=== PATIENT | female | born 1960 | race Caucasian/White ===

== ENCOUNTER 2016-11-18 08:19 | Emergency (ER) | payer BC ==
--- NOTE | 2016-11-18 11:34 | ED ---
Course/Dx - Diagnoses Provider Diagnoses: Bartholin cyst Procedures - Incision and Drainage Site: labia Anesthesia: Local Instrument(s): Scalpel Packing: Gauze
[2016-11-18 14:19] VITALS: BP 132/90
--- NOTE | 2016-11-30 21:22 | ED ---
Good Bowling Alok, scribed for Robson Espitia MD on 11/18/16 at 1134 . GI/ HPI - HPI Summary HPI Summary: 56 y/o female presents to ED and c/o of vaginal pain accompany vaginal lump noticed earlier this morning. She denies any vaginal discharge, fever, vaginal bleeding, abd pain, Hx of DM, dyspnea, and has pacemaker in place. She is not on and medications. She reports NKDA and is postmenopausal. - History of Current Complaint Chief Complaint: EDUrogenitalProblems Time Seen by Provider: 11/18/16 08:42 Stated Complaint: LUMP ON VAG Hx Obtained From: Patient Onset/Duration: Started Hours Ago, Atraumatic, Still Present Timing: Constant, Lasting Hours Severity: Moderate Current Severity: Moderate Pain Intensity: 10 Location of Pain: Groin - "Vaginal" Pain Characteristics: Pressure Associated Signs and Symptoms: Negative: Fever, Abdominal Pain, Other: - Dyspnea Additional Signs & Symptoms: Positive: Other: - Postmenopausal. Negative: Vaginal Bleeding, Vaginal Discharge Aggravating Factor(s): Nothing Alleviating Factor(s): Nothing - Allergy/Home Medications Allergies/Adverse Reactions: Allergies Allergy/AdvReac Type Severity Reaction Status Date / Time PACEMAKER Allergy MRI Uncoded 11/18/16 08:21 CONTRAINDICATED PMH/Surg Hx/FS Hx/Imm Hx Endocrine/Hematology History: Denies: Hx Anticoagulant Therapy, Hx Diabetes, Hx Thyroid Disease Cardiovascular History: Reports: Hx Pacemaker/ICD Denies: Hx Hypertension Respiratory History: Denies: Hx Asthma, Hx Chronic Obstructive Pulmonary Disease (COPD) History: Denies: Hx Renal Disease Neurological History: Denies: Hx Dementia, Hx Seizures Psychiatric History: Denies: Hx Substance Abuse - Cancer History Hx Chemotherapy: No Hx Radiation Therapy: No Infectious Disease History: No Infectious Disease History: Denies: Hx Hepatitis, Hx Human Immunodeficiency Virus (HIV), Traveled Outside the US in Last 30 Days - Family History Known Family History: Negative: Other - Breast Cancer - Social History Alcohol Use: None Substance Use Type: Reports: None Hx Tobacco Use: Yes Smoking Status (MU): Light Every Day Tobacco Smoker Review of Systems Negative: Fever, Chills Negative: Erythema Negative: Sore Throat Negative: Chest Pain Negative: Shortness Of Breath, Cough Negative: Abdominal Pain, Vomiting, Nausea Genitourinary: Other - Negative: Vaginal Bleeding, Vaginal Discharge Negative: dysuria, hematuria Negative: Myalgia, Edema Positive: Other - Vaginal lump. Negative: Rash Neurological: Other - Negative: Dizziness All Other Systems Reviewed And Are Negative: Yes Physical Exam - Summary Physical Exam Summary: Constitutional: Well-developed, Well-nourished, Alert. (-) Distressed Skin: Warm, Dry HENT: Normocephalic; Atraumatic Eyes: Conjunctiva normal Neck: Musculoskeletal ROM normal neck. (-) JVD, (-) Stridor, (-) Tracheal deviation Cardio: Rhythm regular, rate normal, Heart sounds normal; Intact distal pulses; The pedal pulses are 2+ and symmetric. Radial pulses are 2+ and symmetric. (-) Murmur Pulmonary/Chest wall: Effort normal. (-) Respiratory distress, (-) Wheezes, (-) Rales Abd: Soft, (-) Tenderness, (-) Distension, (-) Guarding, (-) Rebound Musculoskeletal: (-) Edema Lymph: (-) Cervical adenopathy Neuro: Alert, Oriented x3 Pelvic: Exterior pelvic exam: bartholin cyst indurated at 4 o'clock position on left labia. Triage Information Reviewed: Yes Vital Signs On Initial Exam: Initial Vitals Temp Pulse Resp BP Pulse Ox 98.1 F 64 16 128/87 100 11/18/16 08:21 11/18/16 08:21 11/18/16 08:21 11/18/16 08:21 11/18/16 08:21 Vital Signs Reviewed: Yes Diagnostics - Vital Signs Vital Signs Temp Pulse Resp BP Pulse Ox 11/18/16 08:21 98.1 F 64 16 128/87 100 - Laboratory Lab Statement: Any lab studies that have been ordered have been reviewed, and results considered in the medical decision making process. Re-Evaluation - Re-Evaluation First Eval Re-Evaluation Time: 10:15 Comment: ALEX Perez present as female foreign language professor Second Eval Re-Evaluation Time: 10:55 Comment: in room to provide bedside assistance for procedure GIGU Course/Dx - Diagnoses Provider Diagnoses: Bartholin cyst Discharge - Discharge Plan Condition: Stable Disposition: HOME Patient Education Materials: Bartholin Cyst (ED) Referrals: Brenda Gerber MD [Medical Doctor] - 5 Days Additional Instructions: Follow up with OBGYN for packing removal Return to the emergency department for changing or worsening symptoms The documentation as recorded by the Good snow Alok accurately reflects the service I personally performed and the decisions made by me, Robson Espitia MD.
== END 2016-11-18 12:15 | disposition home or self-care (01) ==
LOC: ED 08:19
DX: N75.0 Cyst of Bartholin's gland (principal)
CPT/HCPCS: 56420; 99281

== ENCOUNTER 2016-11-20 12:36 | Emergency (ER) | payer BC ==
[2016-11-20 12:58] VITALS: BP 111/84
--- NOTE | 2016-11-20 14:00 | UC ---
Skin Complaint HPI - HPI Summary HPI Summary: The patient comes in today for: 1. Left labial cyst surgical follow-up Onset: 3 days ago. Palliative/provocative: Touching makes it worse. Sitz baths help. Quality: Soreness Region: Left perineal area. Severity: 10/10, but she looks more like 6/10 Time: Constant. Associated symptoms: Event: The patient had noticed soreness initially. She went to the ER at [facility] and it was I and D'ed. However the patient states that it is still sore. She does not see the "string." She is on no medications. Fevers: None. Drainage: None. * - History of Current Complaint Chief Complaint: UCGU Time Seen by Provider: 11/20/16 13:55 Stated Complaint: WOUND RECHECK Hx Obtained From: Patient Hx Last Menstrual Period: NA ?: No - Allergy/Home Medications Allergies/Adverse Reactions: Allergies Allergy/AdvReac Type Severity Reaction Status Date / Time PACEMAKER Allergy MRI Uncoded 11/18/16 08:21 CONTRAINDICATED Review of Systems All Other Systems Reviewed And Are Negative: Yes PMH/Surg Hx/FS Hx/Imm Hx Endocrine History Of: Denies: Diabetes, Thyroid Disease, Hyperthyroidism, Hypothyroidism, Dyslipidemia Cardiovascular History Of: Reports: Cardiac Disorders - PACEMAKER, Pacemaker/ ICD - Pacemaker: She had a "fast rhythm" "heartbeat of a marathon runner." Denies: Hypertension, Myocardial Infarction, Congestive Heart Failure, Atrial Fibrillation, Deep Vein Thrombosis, Bleeding Disorders Respiratory History Of: Denies: COPD, Asthma, Bronchitis, Pneumonia, Pulmonary Embolism GI/ History Of: Denies: Gastroesophageal Reflux, Ulcer, Gastrointestinal Bleed, Gall Bladder Disease, Kidney Stones, Diverticulitis, Renal Disease, Urosepsis Neurological History Of: Denies: TIA, CVA, Dementia, Seizures, Migraine Psychological History Of: Denies: Anxiety, Depression, Bipolar Disorder, Schizophrenia, Post Traumatic Stress Disorder Cancer History Of: Denies: Lung Cancer, Colorectal Cancer, Breast Cancer, Prostate Cancer, Cervical Cancer Other History Of: Negative For: HIV, Hepatitis B, Hepatitis C, Anticoagulant Therapy - Surgical History Surgical History: Yes Surgery Procedure, Year, and Place: HYSTERECTOMY. C SECTION X2 - Family History Known Family History: Negative: Cardiac Disease, Hypertension, Diabetes - Social History Occupation: Employed Full-time Alcohol Use: None Substance Use Type: None Smoking Status (MU): Light Every Day Tobacco Smoker Physical Exam Triage Information Reviewed: Yes Appearance: Well-Appearing, No Pain Distress, Other: - Patient has a sour attitude--using cuss words and showing irritation in her present situation. Vital Signs: Initial Vital Signs Temp 97.4 F 11/20/16 12:53 Pulse 60 11/20/16 12:53 Resp 16 11/20/16 12:53 BP 111/84 11/20/16 12:53 Pulse Ox 97 11/20/16 12:53 Vital Signs Reviewed: Yes Eyes: Positive: Conjunctiva Clear. Negative: Discharge ENT: Positive: Hearing grossly normal. Negative: Pharyngeal erythema, Nasal congestion, Nasal drainage, TM bulging, TM dull, TM red, Tonsillar swelling, Tonsillar exudate Dental: Negative: Gross Decay/Caries @, Dental Fracture @ Neck: Positive: Supple, Nontender, No Lymphadenopathy. Negative: Nuchal Rigidity Respiratory: Positive: Lungs clear, No respiratory distress, No accessory muscle use. Negative: Chest non-tender, Crackles, Wheezing Cardiovascular: Positive: RRR, No Murmur Abdomen Description: Positive: Nontender, No Organomegaly, Soft. Negative: Distended, Guarding Musculoskeletal: Positive: Strength Intact, ROM Intact, No Edema Neurological: Positive: Alert, Muscle Tone Normal Psychological: Positive: Age Appropriate Behavior, Other: - She would follow commands, but was acting like she was discusted with every aspect of her life at this time. Skin: Negative: rashes, breakdown UC Physical Exam Vital Signs On Initial Exam: Initial Vitals Temp Pulse Resp BP Pulse Ox 97.4 F 60 16 111/84 97 11/20/16 12:53 11/20/16 12:53 11/20/16 12:53 11/20/16 12:53 11/20/16 12:53 - Genitalia Exam Female Genitourinary: Other - External genitalia: The right vulva was normal. The left revealed no marked edema or erythema or discharge. There was the surgical site seen. There was no discharge. There was no drain in place. There was minimal tenderness to palpation. There were no enlarged lymph nodes. There was induration about 1 cm in size. Course/Dx - Differential Diagnoses - Skin Complaint Differential Diagnoses: Cellulitis - Diagnoses Provider Diagnoses: REsovling Bartholin's gland abscess. Discharge - Discharge Plan Condition: Stable Disposition: HOME Patient Education Materials: Bartholin Cyst (ED), Incision and Drainage (ED), Cellulitis (ED) Additional Instructions: Please finish the antibiotic as directed and see your primary care provider or TONGUER as needed and particularly if you get worse while on this treatment.
== END 2016-11-20 14:28 | disposition home or self-care (01) ==
LOC: UCEAST 12:36
DX: N75.1 Abscess of Bartholin's gland (principal); F17.210 Nicotine dependence, cigarettes, uncomplicated
CPT/HCPCS: 99211; G0463

== ENCOUNTER → 2017-03-17 12:01 | Day surgery (SDC) | payer BC ==
--- NOTE | 2017-03-10 15:55 | HP ---
PREOPERATIVE HISTORY AND PHYSICAL: DATE OF ADMISSION/SURGERY: 03/17/17 This patient is scheduled for same day surgery admission by Dr. Mae on 03/17/17. CHIEF COMPLAINT: Left groin mass. HISTORY OF PRESENT ILLNESS: The patient is a 56-year-old female referred to Dr. Mae by Dr. Su and nurse practitioner, Lizbeth Blanton, for evaluation of a mass in the left groin. The patie nt states it has been present for several months and it seemed to appear suddenly. She denies any p ain, but has noticed increased size. 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 This has not bee n interfering with her activity. There has been no erythema or drainage. She denies any gastrointe stinal or genitourinary complaints. Dr. Mae examined the patient and noted a mass in the left groin approximately 2 to 3 cm in size, soft, nontender, and easily movable. There was no associate d erythema or fluctuance. Dr. Mae referred the patient for an ultrasound of the left groin and this was consistent with a left femoral hernia. Dr. Mae reviewed the findings with the [facility] and has recommended open repair of the left femoral hernia with mesh as a same day surgery proced ure with local anesthesia and intravenous sedation. He described the nature of the surgical procedu re, the rationale for the procedure, the relevant risks and benefits and alternatives, and today I r eviewed the expected postoperative care and recovery. The patient has had a chance to ask questions and stated that she understands the information and is satisfied with the answers given to her ques tions. She will sign surgical consent on the day of surgery. PAST MEDICAL HISTORY: Significant for: 1. Sick sinus syndrome with implanted pacemaker since 2011, followed by Dr. Grover. 2. Smoking. PAST SURGICAL HISTORY: Implantation of pacemaker, 2012; hemorrhoidectomy; hysterectomy; and cesarea n section. MEDICATIONS: 1. Metoprolol ER 25 mg p.o. daily in the morning. 2. Ibuprofen 600 mg 3 times a day p.r.n. ALLERGIES: No known drug allergies. FAMILY HISTORY: No known anesthesia complications, bleeding tendencies, or clotting disorders. SOCIAL HISTORY: She is single. She smokes a pack of cigarettes every 2 weeks and drinks alcohol ev jessica other day. 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 REVIEW OF SYSTEMS: Constitutional: She denies any constitutional symptoms. HEENT: Denies any symp toms. Cardiovascular: She has a history of implanted pacemaker with the last interrogation, [facility] er 2015. While she was here in our office, she complained of palpitations and dizziness. I called Dr. Grover's office and scheduled her for an appointment there when she left our office. She was seen at Dr. Grover's office and is scheduled for Holter monitoring, 03/11/17, and an ec hocardiogram, , 03/13/17. She denied any chest pain, syncopal episodes, or shortness of jo ath. Respiratory: Denies any respiratory symptoms. Gastrointestinal: Denies any gastrointestinal symptoms. Genitourinary: Denies any urinary symptoms. She denies any history of deep vein thrombo sis or pulmonary embolism. She denies any previous anesthesia complications and states that she rec eived a transfusion at the time of her hysterectomy. PHYSICAL EXAMINATION GENERAL SURVEY: The patient is a 56-year-old female, well developed, well nourished, in no acute di stress. VITAL SIGNS: Height 69 inches, weight 131 pounds, body mass index 19.3. Blood pressure 110/70, pul se 82 and regular, respiratory rate 20. She is afebrile. HEENT: Benign. NECK: Supple. No cervical lymphadenopathy. No thyromegaly. BACK: No CVA tenderness. LUNGS: Breath sounds bilaterally clear and equal. HEART: Regular rate and rhythm. No murmurs or rubs appreciated. ABDOMEN: Positive bowel sounds in all quadrants. Soft, nondistended, nontender throughout. No obv ious masses, organomegaly, or evidence of umbilical hernia. Groin exam reveals an easily movable 2 t o 3-cm mass in the left groin that is soft and nontender. No associated erythema or fluctuance. No mass in the right groin. EXTREMITIES: Warm without edema or skin ulceration. PELVIC AND RECTAL: Exams deferred. NEUROLOGIC: Alert and oriented x3. Steady gait. SKIN: Warm, dry, intact. IMPRESSION: Left femoral hernia. PLAN: Same day surgery admission to Dr. Mae's service on 03/17/17, for open repair of left femoral hernia with mesh. We will await cardiac clearance from Dr. Grover following her Ho lter monitoring on 03/11/17 and echocardiogram on 03/13/17. MEMO ROSALES, RECORDS MANAGEMENT COORDINATOR [id number]/[facility] #: [id number]
[~2017-03-17 12:01] MED LIST: Buffered Lidocaine 0.9% SYRIN* 5 ML/SYR SYRINGE INTRADERM ONE; Buffered Lidocaine 0.9% SYRIN* 5 ML/SYR SYRINGE ONE; Bupivacaine 0.25% SDV* 30 ML ONE; Bupivacaine 0.5% W/EPI SDV* 30 ML VIAL ONE; Lidocaine 1% INJ* 10 MG/ML 30 ML SDV ONE; Midazolam* 1 MG/ML 5 ML VIAL (5 MG) ONE; Propofol* 10 MG/ML 20 ML BTL IV PUSH ONE; ceFAZolin 2 GM PREMIX(*) 2 GM/50 ML BAG IVPB ONE; fentaNYL* 50 MCG/ML 2 ML VIAL (100 MCG VIAL) IV PRN; fentaNYL* 50 MCG/ML 2 ML VIAL (100 MCG VIAL) ONE
--- NOTE | 2017-03-17 15:35 | SURGPN ---
Brief Operative Note - Surgery Procedures: OPERATIVE REPORT PRE-OP: Left femoral hernia POST-OP: Same PROCEDURE: Open repair with mesh of left inguinal hernia SURGEON: MD Carmelita ANESTHESIA: General with Local. Dr. Milian ASST: ALEX Ramos IVF: min EBL: min SPECIMEN: nine DRAIN: none WOUND CLASS: One COMPLICATIONS: none TO PACU
[2017-03-17 16:34] VITALS: BP 121/88
--- NOTE | 2017-03-18 12:14 | OP ---
DATE OF OPERATION: 03/17/17 [facility] DATE OF : 56 SURGEON: Naveed Mae MD YARDAGE CALLER: ALEX Mayen ANESTHESIOLOGIST: Eduardo Milian MD ANESTHESIA: Local with general. PRE-OP DIAGNOSIS: Left femoral hernia. POST-OP DIAGNOSIS: Left femoral hernia. OPERATIVE PROCEDURE: Open repair with mesh of the left femoral hernia. ESTIMATED BLOOD LOSS: Minimal. WOUND CLASSIFICATION: I. COMPLICATIONS: None. DRAINS: None. SPECIMENS: None. DESCRIPTION OF PROCEDURE: Written informed consent was obtained, the left groin was marked with indelible ink and preoperative antibiotics were administered. The patient was taken to the operating room and placed in the supine position. Sequential compression devices and a warming blanket were applied. Anesthesia was administered. The left groin and lower abdomen were prepped and draped in the usual sterile fashion. Time-out verification was completed. Next, careful palpation of the left groin just medial to the femoral vessels and above the inguinal crease, there was the palpable 2-cm bulge not reducible. No overlying skin changes. Well below the expected location of an inguinal hernia. 1% lidocaine mixed with 0.25 % Marcaine infiltrated. An oblique incision was made fingerbreadths above the inguinal crease, carried down to the subcutaneous tissue. Here, we identified fatty protuberance which was from the surrounding tissue up to just below the reflection of the external oblique aponeurosis, medial to the great vessels consistent with a femoral hernia. We were able to dissect this up to the neck and this was reduced without difficulty. The femoral canal was approximately 5 to 6 cm in width and we were easily able to pass a Nika clamp into the canal to assure ourselves that we have completely reduced the hernia sac. Next, a small piece of polypropylene mesh was then rolled into a cylinder type of plug, which was approximately 6 to 7 in diameter and about 3.5 cm in length. This was held in a cylinder with 2 separate 0 Polysorb sutures. We were next able to take the mesh and insert it up into the femoral canal to plug the hernia defect. It fit nicely and occlusively. This was sutured to in two places to the external oblique aponeurosis at its reflection with 0 Polysorb suture. This was flushed with the subcutaneous tissue, did not protrude. Hemostasis was assured. The wound was then closed in layers of 3-0 and 4-0 Polysorb sutures. Steri-Strips and sterile dressings were applied. The patient tolerated the procedure well, was taken to the recovery room in stable condition. [id number]/[facility] #: [id number] KEVIN
== END | disposition home or self-care (01) ==
LOC: OR 12:01
PROVIDERS: ATTEND Surgery
DX: K41.90 Unilateral femoral hernia, without obstruction or gangrene, not specified as recurrent (principal); I49.5 Sick sinus syndrome; Z95.0 Presence of cardiac pacemaker; F17.210 Nicotine dependence, cigarettes, uncomplicated
CPT/HCPCS: C1781; J0690; J2001; J2250; J2704; J3010

== ENCOUNTER 2017-05-30 08:07 | Emergency (ER) | payer BC ==
[2017-05-30 08:13] VITALS: BP 145/99
--- NOTE | 2017-05-30 09:06 | ED ---
Throat Pain/Nasal Congestion - HPI Summary HPI Summary: The pt is a 56 y/o F presenting to the ED c/o dental pain that began last night and worsened upon waking this morning. The pain is constant. The pt rates the pain 3/10. The pain is aggravated and alleviated by nothing. 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 Denies fever, discharge, swelling. Denies any other complaints. Has chronic dental issues. Made an appointment with dentist later in week. Does not want the tooth to become infected. SHx: smoking, weekly alcohol use. - History of Current Complaint Chief Complaint: EDDentalPain Time Seen by Provider: 05/30/17 08:47 Hx Obtained From: Patient Onset/Duration: Sudden Onset, Still Present, Worse Since Severity: Moderate Cough: None - Allergies/Home Medications Allergies/Adverse Reactions: Allergies Allergy/AdvReac Type Severity Reaction Status Date / Time PACEMAKER Allergy MRI Uncoded 03/10/17 12:08 CONTRAINDICATED PMH/Surg Hx/FS Hx/Imm Hx Endocrine/Hematology History: Denies: Hx Anticoagulant Therapy, Hx Diabetes, Hx Thyroid Disease Cardiovascular History: Reports: Hx Pacemaker/ICD - Pacemaker: She had a "fast rhythm" "heartbeat of a marathon runner.", Other Cardiovascular Problems/ Disorders - hyprlipidemia Denies: Hx Congestive Heart Failure, Hx Deep Vein Thrombosis, Hx Hypertension , Hx Myocardial Infarction Respiratory History: Denies: Hx Asthma, Hx Chronic Obstructive Pulmonary Disease (COPD), Hx Lung Cancer, Hx Pneumonia, Hx Pulmonary Embolism GI History: Reports: Other GI Disorders - hemorrhoids Denies: Hx Gall Bladder Disease, Hx Gastrointestinal Bleed, Hx Ulcer, Hx Urosepsis History: Denies: Hx Kidney Stones, Hx Renal Disease Musculoskeletal History: Reports: Hx Tendonitis - hands, Other Musculoskeletal History - lumbago Sensory History: Reports: Hx Contacts or Glasses - wears glasses Denies: Hx Hearing Aid Opthamlomology History: Reports: Hx Contacts or Glasses - wears glasses Neurological History: Denies: Hx Dementia, Hx Migraine, Hx Seizures, Hx Transient Ischemic Attacks (TIA) Psychiatric History: Denies: Hx Anxiety, Hx Depression, Hx Schizophrenia, Hx Bipolar Disorder, Hx Substance Abuse - Cancer History Hx Chemotherapy: No Hx Radiation Therapy: No - Surgical History Surgery Procedure, Year, and Place: HYSTERECTOMY over 30 yrs ago. C SECTION X2 1972, 72 Hx Anesthesia Reactions: No - Immunization History Immunizations Up to Date: Yes Infectious Disease History: No Infectious Disease History: Denies: Hx Clostridium Difficile, Hx Hepatitis, Hx Human Immunodeficiency Virus (HIV), Traveled Outside the US in Last 30 Days - Family History Known Family History: Negative: Cardiac Disease, Hypertension, Diabetes - Social History Alcohol Use: Weekly Alcohol Amount: on weekends 2-3 drinks Substance Use Type: Reports: Marijuana Substance Use Comment - Amount & Last Used: smokes marijuana every day, 2 joints a day Smoking Status (MU): Light Every Day Tobacco Smoker Amount Used/How Often: 1-2 cigg a day, pt has smoked since she was 14 on/off Review of Systems Constitutional: Negative Eyes: Negative Positive: Dental Pain Cardiovascular: Negative Respiratory: Negative Neurological: Negative All Other Systems Reviewed And Are Negative: Yes Physical Exam Triage Information Reviewed: Yes Vital Signs On Initial Exam: Initial Vitals Temp Pulse Resp BP Pulse Ox 97.0 F 84 20 145/99 100 05/30/17 08:10 05/30/17 08:10 05/30/17 08:10 05/30/17 08:05/30/17 08:10 Vital Signs Reviewed: Yes Appearance: Positive: Well-Appearing, Well-Nourished, Pain Distress - mild, patient pacing in room and appears frustrated due to discomfort Skin: Positive: Warm, Skin Color Reflects Adequate Perfusion, Dry. Negative: Cold, Tender, Pale, Erythema @ Head/Face: Positive: Normal Head/Face Inspection Eyes: Positive: Conjunctiva Clear ENT: Positive: Hearing grossly normal, Pharynx normal, TMs normal Dental: Positive: Gross Decay/Caries @, Dental Fracture @ - tenderness at right lower canine, Other - no sign of abscess or erythema, edema. Negative: Percussion Tenderness @, Abscess @, Cellulitis @, Cervical Lymphadenopathy Neck: Positive: Supple, Nontender, No Lymphadenopathy Respiratory/Lung Sounds: Positive: Clear to Auscultation, Breath Sounds Present. Negative: Rales, Rhonchi, Wheezes Cardiovascular: Positive: Normal, RRR, Pulses are Symmetrical in both Upper and Lower Extremities. Negative: Murmur, Rub Bowel Sounds: Positive: Present Musculoskeletal: Positive: Normal, Strength/ROM Intact Neurological: Positive: Normal, Sensory/Motor Intact, Alert, Oriented to Person Place, Time Diagnostics - Vital Signs Vital Signs Temp Pulse Resp BP Pulse Ox 09/01/17 08:17 97.0 F 84 20 145/99 100 05/30/17 08:10 97.0 F 84 20 145/99 100 - Laboratory Lab Statement: Any lab studies that have been ordered have been reviewed, and results considered in the medical decision making process. EENT Course/Dx - Course Course Of Treatment: will be given antibiotic to prevent infection as tooth complained of appears to be fractured/ decay and susceptible to infection. amoxicillin and pain management sent to [facility]. vitals and PE normal otherwise. no other complaints at this time. no concern for emergent etiology. follow up with dentist. aware of worsening signs and symptoms. - Differential Diagnoses Differential Diagnoses: Dental Caries, Fractured Tooth, Tonsilitis - Diagnoses Provider Diagnoses: Pain, dental Discharge - Discharge Plan Condition: Stable Disposition: HOME Prescriptions: Amoxicillin PO (*) [Amoxicillin 500 MG CAP*] 500 mg PO Q12H #14 cap traMADol TAB* [Ultram*] 50 mg PO Q12H PRN #8 tab MDD 2 PRN Reason: Pain Patient Education Materials: Toothache (ED) Referrals: Richard Begum MD [Primary Care Provider] - Additional Instructions: Take prescribed medication as directed. Pain medication along with ibuprofen as needed. Follow up and make appointment with dentist. Swish with salt water and keep good oral hygiene. RETURN TO THE EMERGENCY DEPARTMENT FOR CHANGING OR WORSENING SYMPTOMS
== END 2017-05-30 09:17 | disposition home or self-care (01) ==
LOC: ED 08:07
DX: K08.89 Other specified disorders of teeth and supporting structures (principal)
CPT/HCPCS: 99281

== ENCOUNTER 2018-03-07 17:53 | Emergency (ER) | payer BC ==
[2018-03-07] MEDS ORDERED: Cephalexin CAP* 500 MG PO ONE (18:36)
--- NOTE | 2018-03-07 18:36 | ED ---
Lower Extremity - HPI Summary HPI Summary: 57-year-old female presents with right leg wound for the past 2 weeks. She states she cut it on a nail. She states this occurred 2 weeks ago. She states that the laceration seemed to be healing. She states the past couple days she' s had some drainage from the area. She states she is concerned that is infected has not been healing is rapidly. no spreading redness. No fevers. No history of diabetes. Has no medical conditions. No other injury. No history of MRSA. - History of Current Complaint Chief Complaint: EDExtremityLower Stated Complaint: RT LEG POSSIBLE INFECTION Time Seen by Provider: 03/07/18 18:06 Hx Last Menstrual Period: NA Pain Intensity: 0 - Allergies/Home Medications Allergies/Adverse Reactions: Allergies Allergy/AdvReac Type Severity Reaction Status Date / Time PACEMAKER Allergy MRI Uncoded 03/10/17 12:08 CONTRAINDICATED PMH/Surg Hx/FS Hx/Imm Hx Endocrine/Hematology History: Denies: Hx Anticoagulant Therapy, Hx Diabetes, Hx Thyroid Disease Cardiovascular History: Reports: Hx Pacemaker/ICD - Pacemaker: She had a "fast rhythm" "heartbeat of a marathon runner.", Other Cardiovascular Problems/ Disorders - hyprlipidemia Denies: Hx Angina, Hx Congestive Heart Failure, Hx Coronary Artery Disease, Hx Deep Vein Thrombosis, Hx Hypercholesterolemia, Hx Hypertension, Hx Myocardial Infarction, Hx Valvular Heart Disease Respiratory History: Denies: Hx Asthma, Hx Chronic Obstructive Pulmonary Disease (COPD), Hx Lung Cancer, Hx Pneumonia, Hx Pulmonary Embolism GI History: Reports: Other GI Disorders - hemorrhoids Denies: Hx Gall Bladder Disease, Hx Gastrointestinal Bleed, Hx Ulcer, Hx Urosepsis History: Denies: Hx Kidney Stones, Hx Renal Disease Musculoskeletal History: Reports: Hx Tendonitis - hands, Other Musculoskeletal History - lumbago Sensory History: Reports: Hx Contacts or Glasses - wears glasses Denies: Hx Hearing Aid Opthamlomology History: Reports: Hx Contacts or Glasses - wears glasses Neurological History: Denies: Hx Dementia, Hx Migraine, Hx Seizures, Hx Transient Ischemic Attacks (TIA) Psychiatric History: Denies: Hx Anxiety, Hx Depression, Hx Schizophrenia, Hx Bipolar Disorder, Hx Substance Abuse - Cancer History Hx Chemotherapy: No Hx Radiation Therapy: No - Surgical History Surgery Procedure, Year, and Place: HYSTERECTOMY over 30 yrs ago. C SECTION X2 1972, 72 Hx Anesthesia Reactions: No Infectious Disease History: No Infectious Disease History: Denies: Hx Clostridium Difficile, Hx Hepatitis, Hx Human Immunodeficiency Virus (HIV), Traveled Outside the [place] in Last 30 Days - Family History Known Family History: Negative: Cardiac Disease, Hypertension, Diabetes - Social History Alcohol Use: Weekly Alcohol Amount: on weekends 2-3 drinks Substance Use Type: Reports: Marijuana Substance Use Comment - Amount & Last Used: smokes marijuana every day, 2 joints a day Smoking Status (MU): Light Every Day Tobacco Smoker Amount Used/How Often: 1-2 cigg a day, pt has smoked since she was 14 on/off Review of Systems Negative: Fever Negative: Chest Pain Negative: Shortness Of Breath Positive: Rash All Other Systems Reviewed And Are Negative: Yes Physical Exam Triage Information Reviewed: Yes Vital Signs On Initial Exam: Initial Vitals Temp Pulse Resp BP Pulse Ox 98.5 F 66 16 108/71 97 03/07/18 17:57 03/07/18 17:57 03/07/18 17:57 03/07/18 17:57 03/07/18 17:57 Vital Signs Reviewed: Yes Appearance: Positive: Well-Appearing Skin: Positive: Warm, Dry, Other - 3cm by 2cm healing wound with serosangous fluid, no abscess felt, no surrouding erythema Head/Face: Positive: Normal Head/Face Inspection Eyes: Positive: Normal, Conjunctiva Clear ENT: Positive: Pharynx normal Respiratory/Lung Sounds: Positive: Clear to Auscultation, Breath Sounds Present Cardiovascular: Positive: Normal, RRR Musculoskeletal: Positive: Strength/ROM Intact - right lower leg, Other - good pulses Neurological: Positive: Normal Psychiatric: Positive: Normal Diagnostics - Vital Signs Vital Signs Temp Pulse Resp BP Pulse Ox 03/07/18 17:57 98.5 F 66 16 108/71 97 - Laboratory Lab Statement: Any lab studies that have been ordered have been reviewed, and results considered in the medical decision making process. Lower Extremity Course/Dx - Course Course Of Treatment: 57-year-old female presents with right leg wound for the past 2 weeks. She states she cut it on a nail. She states this occurred 2 weeks ago. She states that the laceration seemed to be healing. She states the past couple days she's had some drainage from the area. She states she is concerned that is infected has not been healing is rapidly. no spreading redness. No fevers. No history of diabetes. Has no medical conditions. No other injury. No history of MRSA. On exam has 3 separate 2 cm healing lesion on the right ruiz. No erythema. No abscess felt. There is some skin present that removed and debride wound. Serosanguineous fluid present. Will treat with Neosporin and keflex to prevent infection. area does not appear cellulitis at the moment. patient understand and agrees with plan. - Diagnoses Differential Diagnosis/HQI/PQRI: Positive: Cellulitis, Other - healing wound, dehiscence, abscess Provider Diagnoses: Healing wound Discharge - Sign-Out/Discharge Documenting (check all that apply): Discharge/Admit/Transfer - Discharge Plan Condition: Good Disposition: HOME Prescriptions: Cephalexin CAP* [Keflex CAP*] 500 mg PO BID #19 cap Patient Education Materials: Acute Wound Care (ED) Referrals: Richard Begum MD [Primary Care Provider] - Additional Instructions: wash area twice a day with soap and water apply neosporin to area Take keflex twice a day for 10 days to prevent infection Return to ED if redness spreads, develop fever, or any new or worsening symptoms - Billing Disposition and Condition Condition: GOOD Disposition: Home
[2018-03-07] MEDS ORDERED: Tetan/Diph/Pertus SYR(Tdap)* 0.5 ML SYR(BOOSTRIX) use SYR IM ONE (18:39)
[2018-03-07 18:58] VITALS: BP 112/70
== END 2018-03-07 18:57 | disposition home or self-care (01) ==
LOC: ED 17:53
DX: S81.811D Laceration without foreign body, right lower leg, subsequent encounter (principal); W45.0XXD Nail entering through skin, subsequent encounter; Z23 Encounter for immunization; F17.210 Nicotine dependence, cigarettes, uncomplicated
CPT/HCPCS: 90471; 90715; 99281; A9270-GY

== ENCOUNTER 2018-03-30 14:14 | Emergency (ER) | payer BC ==
[2018-03-30 14:19] VITALS: BP 104/87
--- NOTE | 2018-03-30 15:37 | RAD ---
INDICATION: RIGHT calf soreness. COMPARISON: No relevant prior exams available on the [facility] PACS for comparison. TECHNIQUE: Woo scale, color Doppler, and spectral analysis of the deep veins of the RIGHT lower extremity. Vessel compression, phasicity, and augmentation assessed. REPORT: The RIGHT common femoral, great saphenous, profunda femoral, femoral, popliteal, peroneal, and posterior tibial veins are patent. Patency of the LEFT common femoral vein documented. IMPRESSION: No evidence for RIGHT lower extremity deep venous thrombosis.
--- NOTE | 2018-03-30 17:29 | ED ---
Clarence Bowling Tenzin, scribed for Michael Stearns MD on 03/30/18 at 1445 . Lower Extremity - HPI Summary HPI Summary: Pt is a 57 years old female presenting to the ED complaining of right leg pain that feels as it is radiating up legs since today. Pt rates the pain at 3/10 in severity per triage. Pt notes that she just took a 5 [address] bus ride from [facility]. Pt reports that the swelling appeared three days ago. Pt denies past medical history of blood clot, fever, dizziness, N/V/D or abd pain. Pt reports the pain in the right leg is aggravated by walking. No alleviating factors were noted. Pt was seen at the ED two weeks ago for the same complaint. Pt has a pacemaker in her left chest. Pt is a smoker and drinks EtOH occasionally. She also adds that she snorts cocaine and smoke marijuana daily. Pt was provided pain medication at the ED. Pt is on Metoprolol meds. - History of Current Complaint Chief Complaint: EDExtremityLower Stated Complaint: RT LEG PAIN/SWELLING Time Seen by Provider: 03/30/18 14:22 Hx Obtained From: Patient Hx Last Menstrual Period: NA Onset of Pain: Prior to Arrival Onset/Duration: Still Present Severity Currently: Mild Pain Intensity: 3 Pain Scale Used: 0-10 Numeric Associated Signs And Symptoms: Negative: Fever, Dizziness, Abdominal Pain Aggravating Factor(s): Ambulation Alleviating Factor(s): Nothing - Allergies/Home Medications Allergies/Adverse Reactions: Allergies Allergy/AdvReac Type Severity Reaction Status Date / Time No Known Allergies Allergy Verified 03/30/18 14:18 Home Medications: Home Medications Metoprolol Succinate XL TAB* [Toprol XL TAB*] 25 mg PO DAILY 03/30/18 [History Confirmed 03/30/18] PMH/Surg Hx/FS Hx/Imm Hx Endocrine/Hematology History: Denies: Hx Anticoagulant Therapy, Hx Diabetes, Hx Thyroid Disease Cardiovascular History: Reports: Hx Pacemaker/ICD - Pacemaker: She had a "fast rhythm" "heartbeat of a marathon runner.", Other Cardiovascular Problems/ Disorders - hyprlipidemia Denies: Hx Angina, Hx Congestive Heart Failure, Hx Coronary Artery Disease, Hx Deep Vein Thrombosis, Hx Hypercholesterolemia, Hx Hypertension, Hx Myocardial Infarction, Hx Valvular Heart Disease Respiratory History: Denies: Hx Asthma, Hx Chronic Obstructive Pulmonary Disease (COPD), Hx Lung Cancer, Hx Pneumonia, Hx Pulmonary Embolism GI History: Reports: Other GI Disorders - hemorrhoids Denies: Hx Gall Bladder Disease, Hx Gastrointestinal Bleed, Hx Ulcer, Hx Urosepsis History: Denies: Hx Kidney Stones, Hx Renal Disease Musculoskeletal History: Reports: Hx Tendonitis - hands, Other Musculoskeletal History - lumbago Sensory History: Reports: Hx Contacts or Glasses - wears glasses Denies: Hx Hearing Aid Opthamlomology History: Reports: Hx Contacts or Glasses - wears glasses Neurological History: Denies: Hx Dementia, Hx Migraine, Hx Seizures, Hx Transient Ischemic Attacks (TIA) Psychiatric History: Denies: Hx Anxiety, Hx Depression, Hx Schizophrenia, Hx Bipolar Disorder, Hx Substance Abuse - Cancer History Hx Chemotherapy: No Hx Radiation Therapy: No - Surgical History Surgery Procedure, Year, and Place: HYSTERECTOMY over 30 yrs ago. C SECTION X2 1972, 72 Hx Anesthesia Reactions: No Infectious Disease History: No Infectious Disease History: Denies: Hx Clostridium Difficile, Hx Hepatitis, Hx Human Immunodeficiency Virus (HIV), Traveled Outside the [place] in Last 30 Days - Family History Known Family History: Negative: Cardiac Disease, Hypertension, Diabetes - Social History Alcohol Use: Weekly Alcohol Amount: on weekends 2-3 drinks Substance Use Type: Reports: Cocaine, Marijuana Substance Use Comment - Amount & Last Used: smokes marijuana every day, 2 joints a day Smoking Status (MU): Current Some Day Smoker Amount Used/How Often: 1-2 cigg a day, pt has smoked since she was 14 on/off Review of Systems Negative: Fever Negative: Abdominal Pain, Vomiting, Diarrhea, Nausea Positive: Other - Pain in right legs. Neurological: Other - NEGATIVE: Dizziness. All Other Systems Reviewed And Are Negative: Yes Physical Exam - Summary Physical Exam Summary: Appearance: Well appearing, no pain distress Skin: warm, dry, reflects adequate perfusion Head/face: normal Eyes: EOMI, YAHIR ENT: normal Neck: supple, non-tender Respiratory: CTA, breath sounds present Cardiovascular: RRR, pulses symmetrical, Pacemaker in the left chest. Abdomen: non-tender, soft Bowel Sounds: present Musculoskeletal: normal, strength/ROM intact Neuro: normal, sensory motor intact, A&Ox3 Triage Information Reviewed: Yes Vital Signs On Initial Exam: Initial Vitals Temp Pulse Resp BP Pulse Ox 98.6 F 63 17 104/87 96 03/30/18 14:15 03/30/18 14:15 03/30/18 14:15 03/30/18 14:15 03/30/18 14:15 Vital Signs Reviewed: Yes Diagnostics - Vital Signs Vital Signs Temp Pulse Resp BP Pulse Ox 03/30/18 14:15 98.6 F 63 17 104/87 96 - Laboratory Lab Statement: Any lab studies that have been ordered have been reviewed, and results considered in the medical decision making process. - Ultrasound No standard instances Ultrasound Interpretation Completed By: Radiologist - LOWER EXTREMITY VEINS RIGHT (Impression): No evidence for RIGHT lower extremity deep venous thrombosis. Lower Extremity Course/Dx - Course Course Of Treatment: Patient with mild discomfort in her right calf and leg after riding the bus back from [facility]. This is been going on for several days after she rode the bus to [facility]. DVT ultrasound the leg is negative. The calf is soft without evidence for cellulitis. There is no evidence for Lopez cyst on the ultrasound. There is no swelling. Follow-up with family doctor. - Diagnoses Differential Diagnosis/HQI/PQRI: Positive: Other - DVT, Lopez's cyst, cellulitis , myositis Provider Diagnoses: Leg pain Discharge - Sign-Out/Discharge Documenting (check all that apply): Discharge/Admit/Transfer - Discharge Plan Condition: Good Disposition: HOME Patient Education Materials: Leg Pain (ED) Referrals: Richard Begum MD [Primary Care Provider] - Additional Instructions: Hydrate well. Tylenol, ibuprofen as needed for discomfort. Return if worse, new symptoms or other concerns. Call your doctor today to schedule a prompt follow-up. - Billing Disposition and Condition Condition: GOOD Disposition: Home The documentation as recorded by the Clarence snow Tenzin accurately reflects the service I personally performed and the decisions made by me, Michael Stearns MD.
== END 2018-03-30 15:48 | disposition home or self-care (01) ==
LOC: ED 14:14
DX: M79.604 Pain in right leg (principal); Z95.0 Presence of cardiac pacemaker
CPT/HCPCS: 99282

== ENCOUNTER 2018-06-27 15:14 | Emergency (ER) | payer BC ==
[2018-06-27 15:19] VITALS: BP 118/74
--- NOTE | 2018-06-27 16:01 | ED ---
Skin Complaint - HPI Summary HPI Summary: Pt is a 57 year old F presenting to [facility] with a chief complaint of a rash around a recovered wound on her RLE inferior to knee onset two days ago. The rash is pruritic and has vesicles, but is non-tender. Pt states the wound recovered in February. Pt put Neosporin on the rash. Pt denies N/V/D. Denies PMHx: Diabetes, HTN. Pt has a pacemaker and denies use of blood thinners. - History of Current Complaint Chief Complaint: EDRashSkinAbscess Stated Complaint: RASH ON RT LOWER EXTREMITY Hx Obtained From: Patient Hx Last Menstrual Period: NA Onset/Duration: Started Days Ago, Still Present Timing: Constant Onset Severity: Mild Current Severity: Mild Pain Intensity: 0 Pain Scale Used: 0-10 Numeric Skin Location: Leg - RLE Character: Pruritus, Raised - vescicles Associated Signs & Symptoms: Negative - Allergy/Home Medications Allergies/Adverse Reactions: Allergies Allergy/AdvReac Type Severity Reaction Status Date / Time No Known Allergies Allergy Verified 06/27/18 15:18 PMH/Surg Hx/FS Hx/Imm Hx Previously Healthy: No Endocrine/Hematology History: Denies: Hx Anticoagulant Therapy, Hx Diabetes, Hx Thyroid Disease Cardiovascular History: Reports: Hx Pacemaker/ICD - Pacemaker: She had a "fast rhythm" "heartbeat of a marathon runner.", Other Cardiovascular Problems/ Disorders - hyprlipidemia Denies: Hx Angina, Hx Congestive Heart Failure, Hx Coronary Artery Disease, Hx Deep Vein Thrombosis, Hx Hypercholesterolemia, Hx Hypertension, Hx Myocardial Infarction, Hx Valvular Heart Disease Respiratory History: Denies: Hx Asthma, Hx Chronic Obstructive Pulmonary Disease (COPD), Hx Lung Cancer, Hx Pneumonia, Hx Pulmonary Embolism GI History: Reports: Other GI Disorders - hemorrhoids Denies: Hx Gall Bladder Disease, Hx Gastrointestinal Bleed, Hx Ulcer, Hx Urosepsis History: Denies: Hx Kidney Stones, Hx Renal Disease Musculoskeletal History: Reports: Hx Tendonitis - hands, Other Musculoskeletal History - lumbago Sensory History: Reports: Hx Contacts or Glasses - wears glasses Denies: Hx Hearing Aid Opthamlomology History: Reports: Hx Contacts or Glasses - wears glasses Neurological History: Denies: Hx Dementia, Hx Migraine, Hx Seizures, Hx Transient Ischemic Attacks (TIA) Psychiatric History: Denies: Hx Anxiety, Hx Depression, Hx Schizophrenia, Hx Bipolar Disorder, Hx Substance Abuse - Cancer History Hx Chemotherapy: No Hx Radiation Therapy: No - Surgical History Surgery Procedure, Year, and Place: HYSTERECTOMY over 30 yrs ago. C SECTION X2 1972, 72 Hx Anesthesia Reactions: No Infectious Disease History: No Infectious Disease History: Denies: Hx Clostridium Difficile, Hx Hepatitis, Hx Human Immunodeficiency Virus (HIV), Traveled Outside the [place] in Last 30 Days - Family History Known Family History: Negative: Cardiac Disease, Hypertension, Diabetes - Social History Occupation: Employed Full-time Lives: Alone Alcohol Use: Weekly Alcohol Amount: on weekends 2-3 drinks Substance Use Type: Reports: Cocaine, Marijuana Substance Use Comment - Amount & Last Used: smokes marijuana every day, 2 joints a day Smoking Status (MU): Current Some Day Smoker Amount Used/How Often: 1-2 cigg a day, pt has smoked since she was 14 on/off Review of Systems Constitutional: Negative Negative: Fever Negative: Blurred Vision Negative: Sore Throat, Ear Ache Negative: Chest Pain Negative: Shortness Of Breath Negative: Vomiting, Diarrhea, Nausea Musculoskeletal: Negative Positive: Rash - RLE Negative: Headache Negative: Anxious, Depressed All Other Systems Reviewed And Are Negative: No Physical Exam - Summary Physical Exam Summary: Appearance: Alert, conversive, nontoxic appearing Skin: Warm, dry, no mottling, no contusions. On the right proximal leg, inferior to knee, there is an old scar and multiple raised vesicles that are non -weeping. There is no evidence of cellulitis, is it non-indurated, and not warm to touch. ABX ointment smeared on it. HEENT: EOMI, PERRL, moist mucous membranes Neck: No masses on the neck, supple Respiratory: Clear to auscultation, breath sounds present, no rales, no rhonchi , no wheezes Cardiovascular: RRR, pulses are symmetrical in both lower and upper extremities Abdomen: Soft, non-tender Bowel Sounds: Present Musculoskeletal: No CVA tenderness, no obvious deformity, moving all extremities in a grossly normal manner Neurological: A&Ox3, CN II-XII Intact, moving all extremities symmetrically Psychiatric: Normal affect and mood Triage Information Reviewed: Yes Vital Signs On Initial Exam: Initial Vitals Temp Pulse Resp BP Pulse Ox 98.4 F 64 16 118/74 97 06/27/18 15:15 06/27/18 15:15 06/27/18 15:15 06/27/18 15:15 06/27/18 15:15 Vital Signs Reviewed: Yes Diagnostics - Vital Signs Vital Signs Temp Pulse Resp BP Pulse Ox 06/27/18 15:15 98.4 F 64 16 118/74 97 - Laboratory Lab Statement: Any lab studies that have been ordered have been reviewed, and results considered in the medical decision making process. Course/Dx - Course Course Of Treatment: Pt is a 57 year old F presenting with a c/c of a RLE rash inferior to knee around a recovered wound onset 2 days ago. The rash is pruritic and has multiple small vescicles. - Diagnoses Provider Diagnoses: Contact dermatitis Discharge - Sign-Out/Discharge Documenting (check all that apply): Patient Departure - DC - Discharge Plan Condition: Stable Disposition: HOME Prescriptions: predniSONE TAB* [Deltasone 20 MG TAB*] 60 mg PO DAILY #12 tab Patient Education Materials: Contact Dermatitis (ED) Referrals: Richard Begum MD [Primary Care Provider] - Additional Instructions: return if worse or any new symptoms. Take the prednisone and benadryl as instructed. It is important to follow up with your primary care physician this week. - Attestation Statements Document Initiated by Scribe: Yes Documenting Scribe: Florence Donnelly Provider For Whom Scribe is Documenting (Include Credential): Dr. Belkis Grewal MD Scribe Attestation: Florence Bowling, scribed for Dr. Belkis Grewal MD on 06/27/18 at 1640.
[2018-06-27] MEDS ORDERED: diPHENhydraMINE PO* 25 MG PO ONE (16:04)
[2018-06-27] MEDS ORDERED: predniSONE TAB* 20 MG PO ONE (16:04)
== END 2018-06-27 16:30 | disposition home or self-care (01) ==
LOC: ED 15:14
DX: L25.9 Unspecified contact dermatitis, unspecified cause (principal); R21 Rash and other nonspecific skin eruption
CPT/HCPCS: 99281

== ENCOUNTER 2019-03-01 17:28 | Emergency (ER) | payer BC ==
[2019-03-01 17:33] VITALS: BP 143/110
== END 2019-03-01 18:32 | disposition left against medical advice (07) ==
LOC: ED 17:28
DX: R21 Rash and other nonspecific skin eruption (principal); L29.9 Pruritus, unspecified; S10.96XA Insect bite of unspecified part of neck, initial encounter; W57.XXXA Bitten or stung by nonvenomous insect and other nonvenomous arthropods, initial encounter; Z53.21 Procedure and treatment not carried out due to patient leaving prior to being seen by health care provider
CPT/HCPCS: 99281

== ENCOUNTER → 2019-03-26 18:06 | Emergency (ER) | payer BC ==
[2019-03-26 18:31] VITALS: BP 141/72
== END | disposition left against medical advice (07) ==
LOC: ED 18:06
DX: Z53.21 Procedure and treatment not carried out due to patient leaving prior to being seen by health care provider (principal)
CPT/HCPCS: 99282

== ENCOUNTER 2019-06-20 17:57 | Emergency (ER) | payer BC ==
--- OUTSIDE RECORDS SUMMARY | 2019-06-20 18:07 | XMS REPORT | Summary of Care ---
:1960 Author Organization [facility] Address [address] [place] [address] Care Team Providers Name Role Phone Richard Begum MD Primary Care Provider Reason for Referral Refer to Department Only (Routine) Status Reason Specialty Diagnoses / Referred By Referred To Procedures Contact Contact Pending Review Physical Diagnoses Primary osteoarthritis of both knees Evelin Avila, RPA-C [address] [place] [address] Reason for Visit Reason Comments New Patient Bilateral knee pain. Films in Epic. No known injuries. Patient states that pain in both knees has gradually gotten worse. Refer to Department Only (Routine) Status Reason Specialty Diagnoses / Referred By Referred To Procedures Contact Contact Pending Review Orthopedics Diagnoses Primary osteoarthritis of both knees Richard Begum MD [address] [place] [address] Encounter Details Date Type Department Care Team Description 06/10/2019 Office Visit [facility] Evelin Avila, Primary osteoarthritis - Alexis RPA-C of both knees (Primary [facility] [address] [facility] Dx) [address] [place] [address] [place] [address] [phone] Allergies No Known Allergiesdocumented as of this encounter (statuses as of 06/10/2019) Medications Medication Sig Dispensed Refills Start Date End Date Status Polyethylene Glycol Take by mouth 0 Active 3350 (MIRALAX PO) NEEDED. metoprolol (LOPRESSOR) Take 12.5 mg by 0 Active 25 MG Oral Tab mouth DAILY. Aspirin 81 MG Oral Tab Take 81 mg by 0 Active mouth DAILY. diclofenac (VOLTAREN) Take 1 Tab by 60 Tab 2 05/25/2019 Active 75 MG Oral Tab mouth TWO TIMES ECIndications: Neck DAILY NEEDED pain, Right arm pain, (muscle and joint Right hand pain pain). tizanidine (ZANAFLEX) 4 Take 1 Tab by 60 Tab 1 05/25/2019 Active MG Oral Tab mouth TWICE DAILY. documented as of this encounter (statuses as of 06/10/2019) Active Problems No known active problemsdocumented as of this encounter (statuses as of 2018) Immunizations Name Administration Dates Next Due PNEUMOCOCCAL POLYSACCHARIDE VACCINE 10/31/2017 documented as of this encounter Social History Tobacco Use Types Packs/Day Years Used Date Current Some Day Smoker Cigarettes 40 Smokeless Tobacco: Never Used Comments: 5 cigarettes a week Alcohol Use Drinks/Week oz/Week Comments Yes 12 Cans of beer 16.0 12 pack in one go and liquor. 4 Shots of liquor Sex Assigned at Date Recorded Not on file Job Start Date Occupation Industry Not on file Not on file Not on file Travel History Travel Start Travel End No recent travel history available. 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 Films in Epic. No known injuries. Patient states that pain in both knees has gradually gotten worse. The patient is here at the request of the the patient for evaluation of bilateral painful knees. HPI: Aide Elkins is a 58-y.o. female who is a 58-y.o. year old female who presents to the clinictoday complaining of pain in both knees. According to the patient it began several years ago with no known injury. The patient indicates the location of pain as the lateralaspect(s) of the right knee and the lateral aspect(s) of the left knee. Right is more painful than the left . The patient characterizes the pain as being aching. She rates the right knee pain as a 7/10 with activity and 2/10 at rest. She rates the left knee pain as a 4/10 with activity and 0/10 at rest. She states the painis gradually worsening. Exacerbating factors include: going up and down stairs, walking, squatting, pivoting, rising after sitting. Alleviating factors include: rest. Treatments to date have included: ice, rest, acetaminophen and over the counter NSAID's. Patient denies catching and locking, hip pain, lower leg pain PAST MEDICAL HISTORY: has a past medical history of Cocaine use, Pacemaker ( 2011), Postmenopausal, SSS (sick sinus syndrome) ([facility]), SVT (supraventricular tachycardia) ([facility]), and Tobacco user. PAST SURGICAL HISTORY: has a past surgical history that includes other hernia repair. MEDICATIONS: Current Outpatient Medications: Aspirin 81 MG Oral Tab, Take 81 mg by mouth DAILY., Disp: , Rfl: diclofenac (VOLTAREN) 75 MG Oral Tab EC, Take 1 Tab by mouth TWO TIMES DAILY NEEDED (muscle and joint pain)., Disp: 60 Tab, Rfl: 2 metoprolol (LOPRESSOR) 25 MG Oral Tab, Take 12.5 mg by mouth DAILY., Disp: , Rfl: Polyethylene Glycol 3350 (MIRALAX PO), Take by mouth NEEDED., Disp: , Rfl: tizanidine (ZANAFLEX) 4 MG Oral Tab, Take 1 Tab by mouth TWICE DAILY., Disp: 60 Tab, Rfl: 1 ALLERGIES: has No Known Allergies. SOCIAL HISTORY: reports that she has been smoking cigarettes. She has smoked for the past 40.00 years. She has never used smokeless tobacco. She reports that she drinks about 16.0 standard drinks of alcohol per week. She reports that she has current or past drug history. Drug: Marijuana. Frequency: 7.00 times per week. FAMILY HISTORY: family history includes Alcohol/Drug in her father; Cancer (age of onset: 60) in hermother; Respiratory in her father. ROS: See HPI otherwise all other ROS are negative at this time Exam: General Appearance: Patient is a well developed, well nourished female in no acute distress. Alert and oriented times three. Vitals: Blood pressure 125/85, pulse 62, height 5' 9" (1.753 m), weight 138 lb ( 62.6 kg), last menstrual period 04/29/1979, not currently . Body mass index is 20.38 kg/m. Gait: Patient walks unassisted , normal gait. Lower Back: There is no obvious clinical deformity. There is no tenderness to the lumbar spine or sacroiliac joints. There is no pain with motion of the lumbar spine. Integumentary: Skin overlying the knee is healthy without any erythema, ecchymosis, masses, rashes,or lesions. Hip: Examination of the hip finds no tenderness and a pain free and unrestricted range of motion with no referred pain to the knee. Right Knee: There is mild valgus deformity. Range of motion of the right knee demonstrates extension 0, flexion 120. There is crepitus throughout range of motion. There is pain at extremes of motion. Patient has tenderness over the lateral joint line. Ligamentous stress testing reveals negativeLachmans, Anterior drawer, Posterior drawer, Sag test, Varus instability, Valgus instability. Gus's test is Negative. Patellar testing reveals negative compression, apprehension. Left Knee: There is mild valgus deformity. Range of motion of the left knee demonstrates extension0, flexion 120. Patient has minimal tenderness over the lateral joint line. Ligamentous stress testing reveals negative Lachmans, Anterior drawer, Posterior drawer, Sag test, Varus instability, Valgus instability. Gus's test is Negative. Patellar testing reveals negative compression, apprehension. Muscular: Knee extension strength is 5 out of 5, Knee flexion strength is 5 out of 5, plantar flexion strength is 5 out of 5, dorsiflexion strength is 5 out of 5. Neurological: Sensation is intact to the medial, lateral, dorsal, and plantar, aspects of the feet. Vascular: Pedal pulses are present. Pedal edema is absent. Skin condition to the feet is unremarkable and intact. Imaging: x-rays obtained today of the knees demonstrate joint space narrowing, sub-chondral sclerosis, osteophyte production, sub-chondral cyst formation most severe at the lateral compartment. Mild inthe patellofemoral and medial compartments. Impression: ICD-9-CM ICD-10-CM 1. Primary osteoarthritis of both knees 715.16 M17.0 REFER TO ORTHOPEDICS Plan: The patient was advised of the above diagnosis including the pathology, prognosis, and furthertreatment options. Options for non-surgical management included continued activity modification, intermittent use of NSAIDs, therapeutic exercises, walking aids, physical therapy. More invasive management with cortisone or visco suplimentation injection was also discussed. Discussed Total Knee Arthroplasty . She would like to proceed with physical therapy. She declines any injections. She follow up in 6 weeksor sooner if necessary. Author: JENNIFER Sanders 09:45 06/10/2019 documented in this encounter Plan of Treatment Date Type Specialty Care Team Description 06/23/2019 Office Visit Physical Therapy Celeste Jaimes, PT [address] [place] [address] [phone] Name Type Priority Associated Diagnoses Order Schedule REFER TO PHYSICAL Referral Routine Primary osteoarthritis of 99 Occurrences THERAPY / REHAB both knees starting 06/10/2019 until 06/10/2020 Health Maintenance Due Date Last Done Comments HIV SCREENING 1973 ZOSTER IMMUNIZATION SERIES 2008 (1 of 2) INFLUENZA VACCINE (#1) 2019 MAMMOGRAM (SCREENING) 06/25/2019 06/25/2018, 03/10/2017, 03/10/2017, Additional history exists PAP SMEAR 10/23/2019 10/23/2016 DEPRESSION SCREENING 05/25/2020 05/25/2019 LIPID DISORDER SCREENING 12/18/2023 12/17/2018, 07/13/2015 COLONOSCOPY SCREENING 02/20/2026 02/21/2016 HEPATITIS C SCREENING Completed 10/06/2017 PNEUMOCOCCAL 0-64 YRS Completed 10/31/2017 HPV IMMUNIZATION SERIES Aged Out No longer eligible based on patient's age to complete this topic MENINGOCOCCAL VACCINE IMM Aged Out No longer eligible based on patient's age to complete this topic documented as of this encounter Results Not on filedocumented in this encounter Visit Diagnoses Diagnosis Primary osteoarthritis of both knees - Primary Primary localized osteoarthrosis, lower leg documented in this encounter Insurance Payer Benefit Plan / Subscriber ID Effective Dates Phone Address Type Group [employer] xxxxxxxxxxxx 2016-Present [employer] documented as of this encounter
[2019-06-20] MEDS ORDERED: Clindamycin CAP* 150 MG PO ONE (20:06)
[2019-06-20] MEDS ORDERED: Ciprofloxacin TAB* 500 MG PO ONE (20:06)
--- NOTE | 2019-06-20 20:06 | ED ---
Skin Complaint - HPI Summary HPI Summary: 58-year-old female presents with swelling to left earlobe for the past couple days. States she had this couple weeks ago and was treated with Keflex. finished last does on Friday. She's got better but then she decided to place a ring in her ear and then it started to swell. She states has been having some drainage from area. Has been doing warm soaks clear. Does not currently have an area. She denies any fevers or chills. No decrease in hearing. States she has minimal pain. No history of MRSA that she knows of. has history of pacemaker. - History of Current Complaint Chief Complaint: EDEarPain Time Seen by Provider: 06/20/19 19:47 Stated Complaint: L EAR INFECTION PER PT Hx Last Menstrual Period: NA Pain Intensity: 6 - Allergy/Home Medications Allergies/Adverse Reactions: Allergies Allergy/AdvReac Type Severity Reaction Status Date / Time No Known Allergies Allergy Verified 06/20/19 18:01 PMH/Surg Hx/FS Hx/Imm Hx Endocrine/Hematology History: Denies: Hx Anticoagulant Therapy, Hx Diabetes, Hx Thyroid Disease Cardiovascular History: Reports: Hx Angina, Hx Pacemaker/ICD - Pacemaker: She had a "fast rhythm" "heartbeat of a marathon runner.", Other Cardiovascular Problems/Disorders - hyprlipidemia Denies: Hx Congestive Heart Failure, Hx Coronary Artery Disease, Hx Deep Vein Thrombosis, Hx Hypercholesterolemia, Hx Hypertension, Hx Myocardial Infarction, Hx Valvular Heart Disease Respiratory History: Denies: Hx Asthma, Hx Chronic Obstructive Pulmonary Disease (COPD), Hx Lung Cancer, Hx Pneumonia, Hx Pulmonary Embolism GI History: Reports: Other GI Disorders - hemorrhoids Denies: Hx Gall Bladder Disease, Hx Gastrointestinal Bleed, Hx Ulcer, Hx Urosepsis History: Denies: Hx Kidney Stones, Hx Renal Disease Musculoskeletal History: Reports: Hx Tendonitis - hands, Other Musculoskeletal History - lumbago Sensory History: Reports: Hx Contacts or Glasses - wears glasses Denies: Hx Hearing Aid Opthamlomology History: Reports: Hx Contacts or Glasses - wears glasses Neurological History: Denies: Hx Dementia, Hx Migraine, Hx Seizures, Hx Transient Ischemic Attacks (TIA) Psychiatric History: Denies: Hx Anxiety, Hx Depression, Hx Schizophrenia, Hx Bipolar Disorder, Hx Substance Abuse - Cancer History Hx Chemotherapy: No Hx Radiation Therapy: No - Surgical History Surgery Procedure, Year, and Place: HYSTERECTOMY over 30 yrs ago. C SECTION X2 1972, 72 Hx Anesthesia Reactions: No Infectious Disease History: No Infectious Disease History: Denies: Hx Clostridium Difficile, Hx Hepatitis, Hx Human Immunodeficiency Virus (HIV), Traveled Outside the [place] in Last 30 Days - Family History Known Family History: Negative: Cardiac Disease, Hypertension, Diabetes - Social History Alcohol Use: Weekly Alcohol Amount: on weekends 2-3 drinks Substance Use Type: Reports: Cocaine, Marijuana Substance Use Comment - Amount & Last Used: smokes marijuana every day, 2 joints a day Smoking Status (MU): Current Some Day Smoker Amount Used/How Often: "I smoke when I drink" Review of Systems Negative: Fever Negative: Chest Pain Negative: Shortness Of Breath Positive: Rash All Other Systems Reviewed And Are Negative: Yes Physical Exam Triage Information Reviewed: Yes Vital Signs On Initial Exam: Initial Vitals Temp Pulse Resp BP Pulse Ox 98.7 F 69 16 123/93 98 06/20/19 17:58 06/20/19 17:58 06/20/19 17:58 06/20/19 17:58 06/20/19 17:58 Vital Signs Reviewed: Yes Appearance: Positive: Well-Appearing Skin: Positive: Warm, Dry Head/Face: Positive: Normal Head/Face Inspection Eyes: Positive: Normal, EOMI, YHAIR, Conjunctiva Clear ENT: Positive: Pharynx normal, TMs normal, Other - edema and erythema of left ear lobe, pus drainage from earing opening Respiratory/Lung Sounds: Positive: Clear to Auscultation, Breath Sounds Present Cardiovascular: Positive: Normal, RRR Musculoskeletal: Positive: Normal Neurological: Positive: Normal Psychiatric: Positive: Normal Diagnostics - Vital Signs Vital Signs Temp Pulse Resp BP Pulse Ox 06/20/19 17:58 98.7 F 69 16 123/93 98 - Laboratory Lab Statement: Any lab studies that have been ordered have been reviewed, and results considered in the medical decision making process. Course/Dx - Course Course Of Treatment: 58-year-old female presents with swelling to left earlobe for the past couple days. States she had this couple weeks ago and was treated with Keflex. finished last does on Friday. She's got better but then she decided to place a ring in her ear and then it started to swell. She states has been having some drainage from area. Has been doing warm soaks clear. Does not currently have an area. She denies any fevers or chills. No decrease in hearing. States she has minimal pain. No history of MRSA that she knows of. has history of pacemaker. on exam has erythema and edema of left ear. discharge noted from hole in ear. got culture of such. milked area to get some pus from the wound. will place on clindamycin and cipro to cover pseudomonas. We'll have follow-up with ENT as likely has a second abscess on the area and maybe some cartilage involvement. Patient understands and agrees with plan. - Differential Diagnoses - Skin Complaint Differential Diagnoses: Abscess, Cellulitis, Contact Dermatitis - Diagnoses Provider Diagnoses: Abscess of left earlobe Discharge ED - Sign-Out/Discharge Documenting (check all that apply): Patient Departure Patient Received Moderate/Deep Sedation with Procedure: No - Discharge Plan Condition: Good Disposition: HOME Prescriptions: Ciprofloxacin TAB* [Cipro 500 MG TAB*] 500 mg PO BID #19 tab Clindamycin Cap(NF) [Clindamycin Cap 300 mg Cap(NF)] 300 mg PO TID #29 cap Patient Education Materials: Abscess (ED) Referrals: Edgardo Hanna MD [Medical Doctor] - Richard Begum MD [Primary Care Provider] - Additional Instructions: Take clindamycin three a day for 10 days, first dose given in ED take cipro twice a day for 10 days Apply warm compresses or soaks to area Take ibuprofen or Tylenol for pain every 6 hours Follow up with ENT Return to ED if develop fever, area of redness spreads, or any new or worsening symptoms - Billing Disposition and Condition Condition: GOOD Disposition: Home
[2019-06-20 20:22] VITALS: BP 0/0
== END 2019-06-20 20:21 | disposition home or self-care (01) ==
LOC: ED 17:57
DX: H60.02 Abscess of left external ear (principal); F17.200 Nicotine dependence, unspecified, uncomplicated; Z95.0 Presence of cardiac pacemaker; Z90.710 Acquired absence of both cervix and uterus; Z79.82 Long term (current) use of aspirin; Z79.899 Other long term (current) drug therapy
CPT/HCPCS: 87070; 87205; 99282; A9270-GY

== ENCOUNTER 2019-09-30 14:12 | Emergency (ER) | payer SELFPAY ==
--- OUTSIDE RECORDS SUMMARY | 2019-09-30 14:30 | XMS REPORT | Summary of Care ---
:1960 Author Organization [facility] Address [address] [address] Care Team Providers Name Role Phone Richard Begum Primary Care Provider Reason for Referral Outpatient Procedure (Routine) Status Reason Specialty Diagnoses / Referred By Referred To Procedures Contact Contact Pending Review Diagnoses Vomiting and diarrhea Paula Cherry NP [address] [address] Refer to Department Only (Routine) Status Reason Specialty Diagnoses / Referred By Referred To Procedures Contact Contact Pending GASTROENTEROLOGY / Diagnoses Change in bowel habits Celestine Cherry Review Gastroenterology Paula Arauz NP Gastroenterol [address] ogy/Hepatolog [place] [address] [address] [facility] Phone: Road [phone] [place], [place] Fax: [phone] Scheduling Instructions Is the patient on cpap machine?No Is the patient on oxygen?No BP 100/62 | Pulse 65 | Temp 98.4 F (36.9 C) | Ht 5' 9" (1.753 m) | Wt 138 lb (62.6 kg) | LMP 04/29/1979 | SpO2 99% | BMI 20.38 kg/m BMI Readings from Last 4 Encounters: 08/16/19 : 20.38 kg/m 08/16/19 : 20.38 kg/m 07/02/19 : 20.38 kg/m 06/10/19 : 20.38 kg/m Controlled Substance Medications: Anticoagulant Medications: Psychiatric/Antianxiety Medications: Antiretroviral Medications: MRI/CAT/PET Scan (Routine) Status Reason Specialty Diagnoses / Referred By Referred To Procedures Contact Contact Pending Review Diagnoses RUQ pain Cherry, Procedures US ABDOMEN COMPLETE Paula Arauz NP [address] [place] [address] Reason for Visit Reason Comments GI Problem New pt. referred by Dr. Begum for N/V/D. Refer to Department Only (Routine) Status Reason Specialty Diagnoses / Referred By Referred To Procedures Contact Contact Pending Review Gastroenterology Diagnoses Vomiting and diarrhea Richard Begum [place] MD Gastroenterolog [address] [place] [address] RD y/Hepatology [address] [address] Road Phone: [place], [place] [phone] [address] Fax: Encounter Details Date Type Department Care Team Description 08/16/2019 Office Visit Celestine Cherry, Change in bowel habits (Primary Dx); Gastroenterology/Hepa Paula Arauz NP Vomiting and diarrhea; tology 1 [address] SQ RUQ pain [address] [facility] [address] [address] [place] [address] [phone] Allergies No Known Allergiesdocumented as of this encounter (statuses as of 08/16/2019) Medications Medication Sig Dispensed Refills Start Date End Date Status Polyethylene Glycol Take by mouth 0 Active 3350 (MIRALAX PO) NEEDED. metoprolol Take 12.5 mg by 0 Active (LOPRESSOR) 25 MG mouth DAILY. Oral Tab Aspirin 81 MG Oral Take 81 mg by 0 Active Tab mouth DAILY. diclofenac (VOLTAREN) Take 1 Tab by 60 Tab 2 05/25/2019 Active 75 MG Oral Tab mouth TWO TIMES ECIndications: Neck DAILY NEEDED pain, Right arm pain, (muscle and joint Right hand pain pain). tizanidine (ZANAFLEX) Take 1 Tab by 60 Tab 1 05/25/2019 Active 4 MG Oral Tab mouth TWICE DAILY. fluocinonide (LIDEX) Apply a thin 1 Tube 0 07/02/2019 Active 0.05 % Apply layer to affected externally area on buttocks CreamIndications: twice daily as Rectal itching needed polyethylene glycol & Take 4,000 mL by 4000 mL 0 08/16/2019 08/17/2019 Active electrolytes (COLYTE, mouth ONE TIME GOLYTELY) 236 g Oral for 1 dose. Recon Soln simethicone Take 1 Tab by 2 Tab 0 08/16/2019 Active (GENASYME, MYLICON) mouth 80 MG Oral Chew Tab DIRECTED. documented as of this encounter (statuses as of 08/16/2019) Active Problems No known active problemsdocumented as [...] Sign Reading Time Taken Comments Blood Pressure 100/62 08/16/2019 1:50 PM EST Pulse 65 08/16/2019 1:50 PM EST Temperature 36.9 08/16/2019 1:50 PM EST C (98.4 F) Respiratory Rate - - Oxygen Saturation 99% 08/16/2019 1:50 PM EST Inhaled Oxygen Concentration - - Weight 62.6 kg (138 lb) 08/16/2019 1:50 PM EST Height 175.3 cm (5' 9") 08/16/2019 1:50 PM EST Body Mass Index 20.38 08/16/2019 1:50 PM EST documented in this encounter Patient Instructions Patient InstructionsPaula Cherry NP - 08/16/2019 2:00 PM EST1. Try not to eat close to bedtime, stop eating at least 2 hours prior to bed 2. Schedule Ultrasound here 3. Labs can be drawn today 4. Schedule colonoscopy and upper endoscopy here in [place] 5. Follow up after the above Thank you for choosing the [facility] for your needs today! -Paula Cherry N.PWanda , Please call if you need to cancel or change your appt. time. Thank you for choosing [facility] for your health care needs, and for consulting with [facility] today. You may receive a survey following this visit, or after an upcoming hospital stay. As easy as it is to feel overloaded with surveys, we are required to send them out randomly and they do provide important feedback so that we may serve your needs in the best way. Please do take the few minutes required to complete the survey if you receive one. We get them too, after seeing the doctor, and they only take a few minutes to complete. documented in this encounter Progress Notes Paula Cherry NP - 08/16/2019 2:00 PM EST PATIENT: Aide Elkins : 1960 DATE OF SERVICE: 08/16/2019 REFERRING PRACTITIONER: Richard Begum PRIMARY CARE PROVIDER: Richard Begum CHIEF COMPLAINT: Chief Complaint Patient presents with GI Problem New pt. referred by Dr. Begum for N/V/D. 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 female who presents for a consultation. She reports diarrhea and vomiting. Onset was a little over a month ago.She describes awakening at 3am intermittently over the past several weeks, feeling her "belly rolling" she then gets herself to the bathroom, were she sits with anticipation of having diarrhea, then begins to vomit. This last for a few hours then she feels well again. Symptoms have been intermittent, she estimates occurring every 2 weeks. Aggravating cause(s): she admits that she eats late at night, sometimes eating in bed and often getsup in the night to eat. She also reports that this seems to correlate with the start of Voltaren. However she is taking this twice daily and her symptoms have only ever been in the very cemetery manager, ie. 3am. She denies dysphagia, fatigue, melena, hematemesis, hematochezia, constipation, diarrhea, jaundice, fevers, weight loss, easy bruising, chest pain, shortness of breath, dysuria, hematuria, pyuria, joint pains, acholic stools, dark urine or systemic pruritis. Treatment to date: nothing Last colonoscopy performed at [facility], 01/2016 was unremarkable with exception of diverticula. Past Medical History: Diagnosis Date Cocaine use Pacemaker 2011 [employer] Postmenopausal SSS (sick sinus syndrome) (HCC) SVT (supraventricular tachycardia) (HCC) Tobacco user Past Surgical History: Procedure Laterality Date OTHER HERNIA REPAIR left groin -[place] Family History Problem Relation Age of Onset Cancer Mother 60 uterine cancer Alcohol/Drug Father Respiratory Father Current Outpatient Medications Medication Sig Aspirin 81 MG Oral Tab Take 81 mg by mouth DAILY. diclofenac (VOLTAREN) 75 MG Oral Tab EC Take 1 Tab by mouth TWO TIMES DAILY NEEDED (muscleand joint pain). fluocinonide (LIDEX) 0.05 % Apply externally Cream Apply a thin layer to affected area on buttocks twice daily as needed metoprolol (LOPRESSOR) 25 MG Oral Tab Take 12.5 mg by mouth DAILY. polyethylene glycol & electrolytes (COLYTE, GOLYTELY) 236 g Oral Recon Soln Take 4,000 mLby mouth ONE TIME for 1 dose. Polyethylene Glycol 3350 (MIRALAX PO) Take by mouth NEEDED. simethicone (GENASYME, MYLICON) 80 MG Oral Chew Tab Take 1 Tab by mouth DIRECTED. tizanidine (ZANAFLEX) 4 MG Oral Tab Take 1 Tab by mouth TWICE DAILY. No current facility-administered medications for this visit. No Known Allergies Social History Socioeconomic History Marital status: Single Spouse name: Not on file Number of children: Not on file Years of education: Not on file Highest education level: Not on file Occupational History Not on file Social Needs Financial resource strain: Not on file Food insecurity: Worry: Not on file Inability: Not on file Transportation needs: Medical: Not on file Non-medical: Not on file Tobacco Use Smoking status: Current Some Day Smoker Years: 40.00 Types: Cigarettes Smokeless tobacco: Never Used Tobacco comment: 5 cigarettes a week Substance and Sexual Activity Alcohol use: Yes Alcohol/week: 16.0 standard drinks Types: 12 Cans of beer, 4 Shots of liquor per week Comment: 12 pack in one go and liquor. Drug use: Yes Frequency: 7.0 times per week Types: Marijuana Comment: never did IV. cocaine was through nose. Sexual activity: Yes Partners: Male Lifestyle Physical activity: Days per week: Not on file Minutes per session: Not on file Stress: Not on file Relationships Social connections: Talks on phone: Not on file Gets together: Not on file Attends mormon service: Not on file Active member of club or organization: Not on file Attends meetings of clubs or organizations: Not on file Relationship status: Not on file Intimate partner violence: Fear of current or ex partner: Not on file Emotionally abused: Not on file Physically abused: Not on file Forced sexual activity: Not on file Other Topics Concern Back Care Not Asked Bike Helmet Not Asked Blood Transfusions Not Asked Caffeine Concern Not Asked Exercise Not Asked Hobby Hazards Not Asked International Travel Not Asked Service Not Asked Occupational Exposure Not Asked Seat Belt Not Asked Self-Exams Not Asked Sleep Concern Not Asked Special Diet Not Asked Stress Concern Not Asked Weight Concern Not Asked Social History Narrative 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 Objective PHYSICAL EXAMINATION: VITALS: BP 100/62 | Pulse 65 | Temp 98.4 F (36.9 C) | Ht 5' 9" ( 1.753 m) | Wt 138 lb (62.6 kg) | LMP 04/29/1979 | SpO2 99% | BMI 20.38 kg/m Body mass index is 20.38 kg/m. GENERAL: alert, oriented, no acute distress. HEENT: No scleral icterus, MMM Psych: Affect normal Neck: no lymphadenopathy LUNGS: clear to auscultation bilaterally. HEART: regular rhythm, no murmurs, no gallops, no rubs. ABDOMEN: general exam: soft, RLQ-tender, non-distended, without masses or organomegaly, normal active bowel sounds, Valdez's sign negative. Extrmities: no edema Skin: clear Neuro: gait normal, a&o x 3 RECTAL: exam deferred. IMPRESSION: ICD-9-CM ICD-10-CM 1. Change in bowel habits 787.99 R19.4 COLONOSCOPY REFER TO GI 2. Vomiting and diarrhea 787.03 R11.10 REFER TO GI 787.91 R19.7 AMYLASE LIPASE LIVER FUNCTION PROFILE BASIC METABOLIC PANEL CBC WITH DIFFERENTIAL CELIAC DISEASE PANEL THYROID STIMULATING HORMONE EGD (LOPEZ / NON LOPEZ) THYROID STIMULATING HORMONE CELIAC DISEASE PANEL CBC WITH DIFFERENTIAL BASIC METABOLIC PANEL LIVER FUNCTION PROFILE LIPASE AMYLASE CELIAC DISEASE PANEL 3. RUQ pain 789.01 R10.11 US ABDOMEN COMPLETE Plan PLAN: Patient Instructions 1. Try not to eat close to bedtime, stop eating at least 2 hours prior to bed 2. Schedule Ultrasound here 3. Labs can be drawn today 4. Schedule colonoscopy and upper endoscopy here in [place] 5. Follow up after the above Thank you for choosing the [facility] for your needs today! -Paula Cherry NWandaPWanda , Please call if you need to cancel or change your appt. time. Thank you for choosing [facility] for your health care needs, and for consulting with [facility] today. You may receive a survey following this visit, or after an upcoming hospital stay. As easy as it is to feel overloaded with surveys, we are required to send them out randomly and they do provide important feedback so that we may serve your needs in the best way. Please do take the few minutes required to complete the survey if you receive one. We get them too, after seeing the doctor, and they only take a few minutes to complete. Author: Paula Cherry NP 08/16/2019 14:36 documented in this encounter Plan of Treatment Date Type Specialty Care Team Description 08/18/2019 Ancillary Procedure Radiology 08/24/2019 GI Procedure Gastroenterology Divina Valencia MD [address] [place] [address] [phone] 09/02/2019 Office Visit Gastroenterology Paula Cherry NP [address] [address] [phone] Name Type Priority Associated Diagnoses Date/Time AMYLASE Lab Routine Vomiting and diarrhea 08/16/2019 2:36 PM EST LIPASE Lab Routine Vomiting and diarrhea 08/16/2019 2:36 PM EST LIVER FUNCTION PROFILE Lab Routine Vomiting and diarrhea 08/16/2019 2:36 PM EST BASIC METABOLIC PANEL Lab Routine Vomiting and diarrhea 08/16/2019 2:36 PM EST CBC WITH DIFFERENTIAL Lab Routine Vomiting and diarrhea 08/16/2019 2:36 PM EST CELIAC DISEASE PANEL Lab Routine Vomiting and diarrhea 08/16/2019 2:36 PM EST THYROID STIMULATING Lab Routine Vomiting and diarrhea 08/16/2019 2:36 PM EST HORMONE CELIAC DISEASE PANEL Lab Routine Vomiting and diarrhea 08/16/2019 2:36 PM EST Name Type Priority Associated Order Schedule Diagnoses US ABDOMEN COMPLETE Imaging Routine RUQ pain 1 Occurrences starting 08/16/2019 until 08/30/2019 COLONOSCOPY Diagnostic/Surgica Routine Change in bowel Ordered: 08/16/2019 l Procedures habits AMYLASE Lab Routine Vomiting and Expected: diarrhea 08/16/2019 (Approximate), Expires: 08/30/2019 LIPASE Lab Routine Vomiting and Expected: diarrhea 08/16/2019 (Approximate), Expires: 08/30/2019 LIVER FUNCTION Lab Routine Vomiting and Expected: PROFILE diarrhea 08/16/2019 (Approximate), Expires: 08/30/2019 BASIC METABOLIC PANEL Lab Routine Vomiting and Expected: diarrhea 08/16/2019 (Approximate), Expires: 08/30/2019 CBC WITH DIFFERENTIAL Lab Routine Vomiting and Expected: diarrhea 08/16/2019 (Approximate), Expires: 08/30/2019 CELIAC DISEASE PANEL Lab Routine Vomiting and Expected: diarrhea 08/16/2019 (Approximate), Expires: 08/30/2019 THYROID STIMULATING Lab Routine Vomiting and Expected: HORMONE diarrhea 08/16/2019 (Approximate), Expires: 08/30/2019 Name Type Priority Associated Diagnoses Order Schedule REFER TO GI Referral Routine Change in bowel habits Expected: 08/16/2019, Expires: 08/16/2020 EGD (LOPEZ / NON Referral Routine Vomiting and diarrhea Expected: 2018, LOPEZ) Expires: 08/16/2020 Health Maintenance Due Date Last Done Comments HIV SCREENING 1973 ZOSTER IMMUNIZATION SERIES 2008 (1 of 2) INFLUENZA VACCINE (#1) 2019 PAP SMEAR 10/23/2019 10/23/2016 DEPRESSION SCREENING 05/25/2020 05/25/2019 MAMMOGRAM (SCREENING) 07/07/2020 07/07/2019, 06/25/2018, 03/10/2017, Additional history exists LIPID DISORDER SCREENING 12/18/2023 12/17/2018, 07/13/2015 COLONOSCOPY [...] filedocumented in this encounter Visit Diagnoses Diagnosis Change in bowel habits - Primary Other symptoms involving digestive system Vomiting and diarrhea Vomiting alone RUQ pain Abdominal pain, right upper quadrant documented in this encounter Insurance Payer Benefit Plan / Subscriber ID Effective Dates Phone Address Type Group [employer] ESSENTIAL xxxxxxxxxxxx 2016-Present [employer] documented as of this encounter
--- OUTSIDE RECORDS SUMMARY | 2019-09-30 14:30 | XMS REPORT | Summary of Care ---
:1960 Author Organization [facility] Address [address] [address] Care Team Providers Name Role Phone Richard Begum Primary Care Provider Reason for Referral Refer to Department Only (Routine) Status Reason Specialty Diagnoses / Referred By Referred To Procedures Contact Contact Pending Review Gastroenterology Diagnoses Vomiting and diarrhea Richard Begum [place] MD Gastroenterolog [address] y/Hepatology [place], [place] [address] [facility] [address] [address] Phone: [place], [place] [phone] [address] Fax: Scheduling Instructions Is the patient on cpap machine?No Is the patient on oxygen?No BP 100/62 (BP Location: Left arm, Patient Position: Sitting) | Pulse 65 | Temp 98.4 F (36.9 C) | Ht 5' 9" (1.753 m) | Wt 138 lb (62.6 kg) | LMP 04/29/1979 | SpO2 99% | BMI 20.38 kg/m BMI Readings from Last 4 Encounters: 08/16/19 : 20.38 kg/m 07/02/19 : 20.38 kg/m 06/10/19 : 20.38 kg/m 05/25/19 : 21.61 kg/m Controlled Substance Medications: Anticoagulant Medications: Psychiatric/Antianxiety Medications: Antiretroviral Medications: Reason for Visit Reason Comments Other pt presents for stomach issues, states throwing up and diarrhea. No fever. States does get cold chills. On going for about a month now. Encounter Details Date Type Department Care Team Description 08/16/2019 [facility] Richard Begum MD Vomiting and diarrhea Practice [address] (Primary Dx) [address] [place] [address] [place] [address] [phone] Allergies No Known Allergiesdocumented as of this [...] TWICE DAILY. fluocinonide (LIDEX) Apply a thin layer 1 Tube 0 07/02/2019 Active 0.05 % Apply to affected area externally on buttocks twice CreamIndications: daily as needed Rectal itching documented as of this encounter (statuses as [...] Time Taken Comments Blood Pressure 100/62 08/16/2019 1:08 PM EST Pulse 65 08/16/2019 1:08 PM EST Temperature 36.9 08/16/2019 1:08 PM EST C (98.4 F) Respiratory Rate - - Oxygen Saturation 99% 08/16/2019 1:08 PM EST Inhaled Oxygen Concentration - - Weight 62.6 kg (138 lb) 08/16/2019 1:08 PM EST Height 175.3 cm (5' 9") 08/16/2019 1:08 PM EST Body Mass Index 20.38 08/16/2019 1:08 PM EST documented in this encounter Progress Notes Richard Begum MD - 08/16/2019 1:00 PM EST PATIENT: Aide Elkins : 1960 DATE OF SERVICE: 08/16/2019 CHIEF COMPLAINT: Chief Complaint Patient presents with Other pt presents for stomach issues, states throwing up and diarrhea. No fever. States does get cold chills. On going for about a month now. 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 1 month of symptoms where she has abd pain with vomiting and diarrhea . Lasts for few hours. Missed work because of it . Not think related to what she eats Always happens in the middle of the night. , no fever but does get chilled . Occurs every few weeks She saw Tiffanie Nowalk 6 weeks ago for multiple issues. One was chnge in and looks like some blood instool. She had stool studies ordered. Patient said she saw someone but I called both GI offices [place] and they hod not seen her since colonoscopy . She said she not do stool studies because symptoms imprved Hands doing better , I never got her the splints Past Medical History: Diagnosis Date Cocaine use Pacemaker 2011 [facility], 1928[facility]1983 Postmenopausal SSS (sick sinus syndrome) ([facility]) SVT (supraventricular tachycardia) ([facility]) Tobacco user Family History Problem Relation Age of Onset [...] Tab Take 12.5 mg by mouth DAILY. Polyethylene Glycol 3350 (MIRALAX PO) Take by mouth NEEDED. 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 Physical Exam Vitals signs reviewed. Constitutional: General: She is not in acute distress. Eyes: General: No scleral icterus. Conjunctiva/sclera: Conjunctivae normal. Cardiovascular: Rate and Rhythm: Regular rhythm. Pulmonary: Effort: Pulmonary effort is normal. No respiratory distress. Breath sounds: Normal breath sounds. Abdominal: General: Abdomen is flat. Bowel sounds are normal. There is no distension. Palpations: There is no mass. Tenderness: There is no tenderness. There is no guarding. ASSESSMENT / IMPRESSION: ICD-9-CM ICD-10-CM 1. Vomiting and diarrhea 787.03 R11.10 REFER TO GI 787.91 R19.7 Bouts few hours long , by days I would assume it is food related and coincidental but she said it is not food related she knows of plus the blood month or so before will ask GI to see her andwhat the best tests to order on her . Did not think due to c diff with recent clindamycin dosing or that she needs anti emetic or med for her diarrhea if symptoms not last long Plan Author: Richard Begum MD 08/16/2019 13:13 documented in this encounter Plan of Treatment Name Type Priority Associated Diagnoses Order Schedule REFER TO GI Referral Routine Vomiting and diarrhea Expected: 08/16/2019, Expires: 08/16/2020 Health Maintenance Due Date Last [...] filedocumented in this encounter Visit Diagnoses Diagnosis Vomiting and diarrhea - Primary Vomiting alone documented in this encounter Insurance Payer Benefit Plan / Subscriber ID Effective Dates Phone Address Type Group [employer] Humber[employer] ESSENTIAL xxxxxxxxxxxx 2016-Present [employer] documented as of this encounter
--- OUTSIDE RECORDS SUMMARY | 2019-09-30 14:30 | XMS REPORT | Continuity of Care Document ---
:1960 External Reference #:[id number] Author Name Tania Otto PA-C Address [address] [place] [address] Care Team Providers Name Role Phone Paula Cherry NP Care Team Information Director Of Reimbursement [phone] Richard Begum MD Care Team Information Director Of Reimbursement [phone] Problems Active Problems Provider Date H/O: pacemaker in situ Carlos Fleming MD Onset: 12/19/2015 Hypercholesterolemia Carlos Fleming MD Onset: 12/19/2015 Generalized abdominal pain Tania Otto PA-C Onset: 09/16/2019 Diarrhea Tania Otto PA-C Onset: 09/16/2019 Nausea and vomiting Tania Otto PA-C Onset: 09/16/2019 Social History Type Date Description Comments Sex Unknown Tobacco Use Start: Unknown Light tobacco smoker (10 or fewer cigarettes/day) Recreational Drug Use Regularly uses Marijuana Recreational Drug Use Regularly uses Cocaine Smoking Status Reviewed: 09/16/19 Light tobacco smoker (10 or fewer cigarettes/day) Allergies, Adverse Reactions, Alerts Description No Known Drug Allergies Medications Active Medications SIG Qnty Indications Ordering Provider Date Peg-3350/Electrolytes by mouth as 4000ml Phil Krystal, DO 09/16/2019 directed 236gm Solution Rec Metoprolol Tartrate Faiza Barker RPA 25mg Tablets Miralax Unknown Diclofenac Sodium bid Unknown 75mg Tablets DR Aspirin Adult Low 1 by mouth every Unknown Dose day 81mg Tablets Immunizations Description No Information Available Vital Signs Date Vital Result Comment 09/16/2019 8:11am Height 69 inches 5'9" Weight 138.00 lb BP Systolic 125 mmHg BP Diastolic 81 mmHg Heart Rate 64 /min BMI (Body Mass Index) 20.4 kg/m2 12/19/2015 9:38am Height 69 inches 5'9" Weight 131.00 lb BP Systolic 118 mmHg BP Diastolic 72 mmHg Heart Rate 66 /min BMI (Body Mass Index) 19.3 kg/m2 Results Description No Information Available Procedures Description No Information Available Medical Devices Description No Information Available Encounters Description No Information Available Assessments Date Code Description Provider 09/16/2019 R11.2 Nausea with vomiting, unspecified MAGAN Marshall 09/16/2019 R19.7 Diarrhea, unspecified Tania Otto PA-C 09/16/2019 R10.84 Generalized abdominal pain Tania Otto PA-C Plan of Treatment Future Appointment(s):10/28/2019 8:00 am - Phil Rice DO at [facility]09/16/2019 - GABRIEL Marshall11.2 Nausea with vomiting, fpvfawaduqpW46.7 Diarrhea, [id number] Generalized abdominal pain Functional Status Description No Information Available Mental Status Description No Information Available Referrals Description No Information Available
--- OUTSIDE RECORDS SUMMARY | 2019-09-30 14:30 | XMS REPORT | Summary of Care ---
:1960 Author Organization [facility] Address [address] [facility] [place] [address] Care Team Providers Name Role Phone Richard Begum Primary Care Provider Reason for Referral MRI/CAT/PET Scan (Routine) Status Reason Specialty Diagnoses / Referred By Referred To Procedures Contact Contact Pending Review Diagnoses Nausea vomiting and diarrhea Jo Ann, Procedures NM HEPATOBILIARY W EJECTION FRACTION CCK Paula Arauz NP [address] [place] [address] Reason for Visit Reason Comments Follow-up Follow-up to recent US abdomen. Encounter Details Date Type Department Care Team Description 09/02/2019 Office Visit [place] vomiting and Gastroenterology/Hepa Paula Arauz NP diarrhea (Primary Dx) tology 1 [facility] [address] [facility] [place] [address] [place] [address] Allergies No Known Allergiesdocumented as of this encounter (statuses as of 09/02/2019) Medications Medication Sig Dispensed Refills Start Date [...] twice CreamIndications: daily as needed Rectal itching simethicone (GENASYME, Take 1 Tab by 2 Tab 0 08/16/2019 Active MYLICON) 80 MG Oral mouth DIRECTED. Chew Tab Nutritional Take 1 bottle by 0 Active Supplements (ENSURE oral route daily. ORIGINAL PO) documented as of this encounter (statuses as of 09/02/2019) Active Problems No known active problemsdocumented as [...] Sign Reading Time Taken Comments Blood Pressure 118/82 09/02/2019 8:16 AM EST Pulse 78 09/02/2019 8:16 AM EST Temperature 36.1 09/02/2019 8:16 AM EST C (97 F) Respiratory Rate - - Oxygen Saturation - - Inhaled Oxygen Concentration - - Weight 61 kg (134 lb 8 oz) 09/02/2019 8:16 AM EST Height 175.3 cm (5' 9") 09/02/2019 8:16 AM EST Body Mass Index 19.86 09/02/2019 8:16 AM EST documented in this encounter Patient Instructions Patient InstructionsPaula Cherry NP - 09/02/2019 8:20 AM EST1. Colonoscopy and upper endoscopy will need to be done in the hospital setting, will send orders and referral to [facility] so this can be done locally for you 2. Will schedule HIDA at the [facility] 3. Follow up after the above If you have not already been screened for Hepatitis C we would be happy to do that for you today. Currently we recommend screening for hepatitis C virus (HCV ) infection in persons at high risk for infection, and to adults born between 1945 and 1965. Thank you for choosing the [facility] for your needs today! -Paula Cherry N.P. , Please call if you need to cancel or change your appt. time. Thank you for choosing [facility] for your health care needs, and for consulting with [facility] today. You may receive a survey following [...] encounter Progress Notes Paula Cherry NP - 09/02/2019 8:20 AM EST PATIENT: Aide Elkins : 1960 DATE OF SERVICE: 09/02/2019 REFERRING PRACTITIONER: Richard Begum PRIMARY CARE PROVIDER: Richard Begum CHIEF COMPLAINT: Chief Complaint Patient presents with Follow-up Follow-up to recent US abdomen. 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 Ultrasound which was unremarkable. She was scheduled to have CUG perfoemd however will need to have this done in the hospital setting due to history of pacemaker, she wishes to hold on this for now. Last colonoscopy was in 2016 and was unremarkable. She continues to eat high fat foods, an on occasion experiences what she describes as feeling her "belly rolling" she then gets herself to the bathroom, were she sits with anticipation of having diarrhea, then begins to vomit. This last for a few hours then she feels well again. She denies dysphagia, fatigue, melena, hematemesis, hematochezia, constipation, jaundice, fevers, chills, night sweats, weight loss, easy bruising, chest pain , shortness of breath, dysuria, hematuria,pyuria, joint pains, acholic stools, dark urine or systemic pruritis. Current Outpatient Medications Medication Sig Aspirin 81 [...] Tab Take 12.5 mg by mouth DAILY. Nutritional Supplements (ENSURE ORIGINAL PO) Take 1 bottle by oral route daily. Polyethylene Glycol 3350 (MIRALAX PO) Take by mouth NEEDED. simethicone (GENASYME, MYLICON) 80 MG Oral Chew Tab Take 1 Tab by mouth DIRECTED. tizanidine (ZANAFLEX) 4 MG Oral Tab Take 1 Tab by mouth TWICE DAILY. No current facility-administered medications for this visit. No Known Allergies REVIEW OF SYSTEMS: All remaining review of systems was negative except for as noted in the history of present illness/subjective. Objective PHYSICAL EXAMINATION: VITALS: BP 118/82 | Pulse 78 | Temp 97 F (36.1 C) | Ht 5' 9" (1.753 m) | Wt 134 lb 8 oz(61 kg) | LMP 04/29/1979 | BMI 19.86 kg/m Body mass index is 19.86 kg/m. GENERAL: alert, oriented, no acute distress. HEENT: No scleral icterus, MMM Psych: Affect normal Neck: supple Extrmities: no edema Skin: clear Neuro: gait normal, a&o x 3 RECTAL: exam deferred. IMPRESSION: ICD-9-CM ICD-10-CM 1. Nausea vomiting and diarrhea 787.91 R11.2 NM HEPATOBILIARY W EJECTION FRACTION CCK 787.01 R19.7 Plan PLAN: Patient Instructions 1. Colonoscopy and upper endoscopy will need to be done in the hospital setting , will send orders and referral to [facility] so this can be done locally for you 2. Will schedule HIDA at the [facility] 3. Follow up after the above If you have not already been screened for Hepatitis C we would be happy to do that for you today. Currently we recommend screening for hepatitis C virus (HCV ) infection in persons at high risk for infection, and to adults born between 1945 and 1965. Thank you for choosing the [facility] for your needs today! -Paula Cherry N.P. , Please call if you need to cancel or change your appt. time. Thank you for choosing [facility] for your health care needs, and for consulting with [facility] today. You may receive a survey following [...] minutes to complete. Author: Paula Cherry NP 09/02/2019 08:36 documented in this encounter Plan of Treatment Name Type Priority Associated Diagnoses Order Schedule NM HEPATOBILIARY W Imaging Routine Nausea vomiting and Expected: EJECTION FRACTION CCK diarrhea 09/02/2019, Expires: 09/01/2020 Health Maintenance Due Date Last Done Comments HIV SCREENING 1973 ZOSTER IMMUNIZATION SERIES 2008 (1 of 2) INFLUENZA VACCINE (#1) 2019 PAP SMEAR 10/23/2019 10/23/2016 DEPRESSION SCREENING 05/25/2020 05/25/2019 MAMMOGRAM (SCREENING) 07/07/2020 07/07/2019, 06/25/2018, 03/10/2017, Additional history exists LIPID DISORDER SCREENING 12/18/2023 12/17/2018, 07/13/2015 Colonoscopy 02/20/2026 02/21/2016 HEPATITIS C SCREENING Completed 10/06/2017 PNEUMOCOCCAL 0-64 YRS Completed 10/31/2017 HPV IMMUNIZATION SERIES Aged Out No longer eligible based on patient's age to complete this topic MENINGOCOCCAL VACCINE IMM Aged Out No longer eligible based on patient's age to complete this topic documented as of this encounter Results Not on filedocumented in this encounter Visit Diagnoses Diagnosis Nausea vomiting and diarrhea - Primary Nausea with vomiting documented in this encounter Insurance Payer Benefit Plan / Subscriber ID Effective Dates Phone Address Type Group [employer] xxxxxxxxxxxx 2016-Present [employer] documented as of this encounter
--- NOTE | 2019-09-30 15:14 | ED ---
Abdominal Pain/Female - HPI Summary HPI Summary: This pt is a 59 Y/O F presenting to [facility] with a CC of abdominal pain that has been present since 09/23/19. She states that the pain is diffuse and she was diagnosed with diverticulitis and was given ABx treatment. She states that the pain is a 10/10 and is returning today with increased nausea, vomiting, and diarrhea described as loose. She states that the pain was gone on 09/28/19 but has returned. She denies any fevers, chills, and headaches. She states that the pain waxes and wanes. She states that she has been unable to eat or drink recently due to her nausea and pain. She has no alleviating symptoms. She has a PMHx of a recent diverticulitis Dx. - History of Current Complaint Chief Complaint: EDAbdPain Stated Complaint: ABDOMINAL PAIN PER EMS Time Seen by Provider: 09/30/19 14:47 Hx Obtained From: Patient Hx Last Menstrual Period: NA Onset/Duration: Sudden Onset, Lasting Days, Still Present Timing: Constant Severity Initially: Severe Severity Currently: Severe Pain Intensity: 10 Pain Scale Used: 0-10 Numeric Location: Diffuse Aggravating Factor(s): Food, Other: - liquids Alleviating Factor(s): Nothing Associated Signs and Symptoms: Positive: Negative - chills, headaches, Decreased Appetite, Nausea, Vomiting, Diarrhea. Negative: Fever Allergies/Adverse Reactions: Allergies Allergy/AdvReac Type Severity Reaction Status Date / Time No Known Allergies Allergy Verified 06/20/19 18:01 Home Medications: Home Medications Diclofenac Sodium EC TAB* [Voltaren EC TAB*] 75 mg PO BID PRN 09/30/19 [History Confirmed 09/30/19] Fluocinonide 0.05% CREAM(NF) 1 applic TOPICAL BID 09/30/19 [History Confirmed ] Lactose-Reduced Food [Ensure Liquid] 237 ml PO DAILY 09/30/19 [History Confirmed 09/30/19] Polyethylene Glycol 3350 BTL* [Miralax] 238 gm PO ONCE PRN 09/30/19 [History Confirmed 09/30/19] Simethicone TAB* [Mylicon TAB*] 80 mg PO AC PRN 09/30/19 [History Confirmed 11/18] tiZANidine TAB* [Zanaflex TAB*] 4 mg PO BID 09/30/19 [History Confirmed 09/30/19 ] PMH/Surg Hx/FS Hx/Imm Hx Previously Healthy: Yes Endocrine/Hematology History: Denies: Hx Anticoagulant Therapy, Hx Diabetes, Hx Thyroid Disease Cardiovascular History: Reports: Hx Angina, Hx Pacemaker/ICD - Pacemaker: She had a "fast rhythm" "heartbeat of a marathon runner.", Other Cardiovascular Problems/Disorders - hyprlipidemia Denies: Hx Congestive Heart Failure, Hx Coronary Artery Disease, Hx Deep Vein Thrombosis, Hx Hypercholesterolemia, Hx Hypertension, Hx Myocardial Infarction, Hx Valvular Heart Disease Respiratory History: Denies: Hx Asthma, Hx Chronic Obstructive Pulmonary Disease (COPD), Hx Lung Cancer, Hx Pneumonia, Hx Pulmonary Embolism GI History: Reports: Other GI Disorders - hemorrhoids Denies: Hx Gall Bladder Disease, Hx Gastrointestinal Bleed, Hx Ulcer, Hx Urosepsis History: Denies: Hx Kidney Stones, Hx Renal Disease Musculoskeletal History: Reports: Hx Tendonitis - hands, Other Musculoskeletal History - lumbago Sensory History: Reports: Hx Contacts or Glasses - wears glasses Denies: Hx Hearing Aid Opthamlomology History: Reports: Hx Contacts or Glasses - wears glasses Neurological History: Denies: Hx Dementia, Hx Migraine, Hx Seizures, Hx Transient Ischemic Attacks (TIA) Psychiatric History: Denies: Hx Anxiety, Hx Depression, Hx Schizophrenia, Hx Bipolar Disorder, Hx Substance Abuse - Cancer History Hx Chemotherapy: No Hx Radiation Therapy: No - Surgical History Surgical History: Yes Surgery Procedure, Year, and Place: HYSTERECTOMY over 30 yrs ago. C SECTION X2 1972, Hx Anesthesia Reactions: No - Immunization History Immunizations Up to Date: Yes Infectious Disease History: No Infectious Disease History: Denies: Hx Clostridium Difficile, Hx Hepatitis, Hx Human Immunodeficiency Virus (HIV), Traveled Outside the US in Last 30 Days - Family History Known Family History: Negative: Cardiac Disease, Hypertension, Diabetes - Social History Occupation: Employed Full-time, Retired Lives: With Family Alcohol Use: Weekly Alcohol Amount: on weekends 2-3 drinks Hx Substance Use: Yes Substance Use Type: Reports: Cocaine, Marijuana Substance Use Comment - Amount & Last Used: smokes marijuana every day, 2 joints a day Hx Tobacco Use: Yes Smoking Status (MU): Current Some Day Smoker Amount Used/How Often: "I smoke when I drink" Review of Systems Negative: Fever, Chills Positive: Abdominal Pain, Vomiting, Diarrhea - described as loose , Nausea Negative: Headache All Other Systems Reviewed And Are Negative: Yes Physical Exam - Summary Physical Exam Summary: Appearance: The patient is well-nourished in no acute distress and in no acute pain. Skin: The skin is warm and dry and skin color reflects adequate perfusion. HEENT: The head is normocephalic and atraumatic. The pupils are equal and reactive. The conjunctivae are clear and without drainage. Nares are patent and without drainage. Mouth reveals moist mucous membranes and the throat is without erythema and exudate. The external ears are intact. The ear canals are patent and without drainage. The tympanic membranes are intact. Neck: The neck is supple with full range of motion and non-tender. There are no carotid bruits. There is no neck vein distension. Respiratory: Chest is non-tender. Lungs are clear to auscultation and breath sounds are symmetrical and equal. Cardiovascular: Heart is regular rate and rhythm. There is no murmur or rub auscultated. There is no peripheral edema and pulses are symmetrical and equal. Abdomen: The abdomen is soft and diffusely tender. There are normal bowel sounds heard in all four quadrants and there is no organomegaly palpated. Musculoskeletal: There is no back tenderness noted. Extremities are non-tender with full range of motion. There is good capillary refill. There is no peripheral edema or calf tenderness elicited. Neurological: Patient is alert and oriented to person, place and time. The patient has symmetrical motor strength in all four extremities. Cranial nerves are grossly intact. Deep tendon reflexes are symmetrical and equal in all four extremities. Psychiatric: The patient has an appropriate affect and does not exhibit any anxiety or depression. Triage Information Reviewed: Yes Vital Signs On Initial Exam: Initial Vitals Temp Pulse Resp BP Pulse Ox 98.9 F 61 20 166/103 100 09/30/19 14:15 09/30/19 14:15 09/30/19 14:15 09/30/19 14:15 09/30/19 14:15 Vital Signs Reviewed: Yes Procedures - Sedation Patient Received Moderate/Deep Sedation with Procedure: No Diagnostics - Vital Signs Vital Signs Temp Pulse Resp BP Pulse Ox 09/30/19 15:00 67 24 100 09/30/19 14:47 61 15 159/98 99 09/30/19 14:17 60 166/103 100 09/30/19 14:15 98.9 F 60 20 166/103 100 - Laboratory Result Diagrams: 09/30/19 15:38 09/30/19 15:39 Lab Statement: Any lab studies that have been ordered have been reviewed, and results considered in the medical decision making process. Abdominal Pain Fem Course/Dx - Course Course Of Treatment: Her pain completely resolved with IV Dilaudid and Zofran along with normal saline. Her labs are unremarkable and I recommended that we include pain control with her previous regimen. - Diagnoses Provider Diagnoses: Abdominal pain Discharge ED - Sign-Out/Discharge Documenting (check all that apply): Patient Departure - discharge - Discharge Plan Condition: Stable Disposition: HOME Prescriptions: HYDROcodone/ACETAMIN 5-325 MG* [[place] 5-325 TAB*] 1 tab PO Q6H PRN #20 tab MDD 4 PRN Reason: Pain Patient Education Materials: Acute Abdominal Pain (ED) Forms: *Work Release Referrals: Richard Begum MD [Primary Care Provider] - 2 Days Additional Instructions: PLEASE FOLLOW UP WITH YOUR PRIMARY CARE PROVIDER IN 1-3 DAYS AND RETURN TO THE EMERGENCY DEPARTMENT FOR ANY NEW OR WORSENING SYMPTOMS. Please take the prescribed medications as directed. - Billing Disposition and Condition Condition: STABLE Disposition: Home - Attestation Statements Document Initiated by Frank: Yes Documenting Scribe: Je Dumont Provider For Whom Frank is Documenting (Include Credential): Lai Mora MD Scribe Attestation: Je Bowling, scribed for Lai Mora MD on 09/30/19 at 2141. Scribe Documentation Reviewed: Yes Provider Attestation: The documentation as recorded by the Je snow accurately reflects the service I personally performed and the decisions made by me, Lai Mora MD Status of Scribe Document: Viewed
[2019-09-30] MEDS: Ondansetron INJ* 2 MG/ML VIAL IV ONE (15:30)
[2019-09-30] MEDS: NS 0.9% 1000 ML** 1,000 ML IV ONE (15:30)
[2019-09-30] MEDS: HYDROmorphone INJ1* 1 MG/ML SYRINGE IV SLOW PU ONE (15:30)
[2019-09-30 16:12] LABS: Hematocrit 39 % (35-47); Hemoglobin 13.2 g/dL (12.0-16.0); Mean Corpuscular HGB Conc 34 g/dL (31-36); Mean Corpuscular Hemoglobin 30 pg (27-31); Mean Corpuscular Volume 89 fL (80-97); Mean Platelet Volume 11.1 fL (7.4-10.4); Platelet Count 241 10^3/uL (150-450); Red Blood Count 4.36 10^6 /uL (3.70-4.87); Red Cell Distribution Width 13 % (10-15); White Blood Count 9.8 10^3/uL (3.5-10.8)
[2019-09-30 16:24] LABS: ALT 9 U/L (7-52); AST 12 U/L (13-39); Albumin 4.5 g/dL (3.2-5.2); Albumin/Globulin Ratio 1.6 (1-3); Alkaline Phosphatase 77 U/L (34-104); Anion Gap 12 mmol/L (2-11); BUN/Creatinine Ratio 29.3 (8-20); Blood Urea Nitrogen 17 mg/dL (6-24); CO2 Carbon Dioxide 22 mmol/L (22-32); Calcium 10.1 mg/dL (8.6-10.3); Chloride 107 mmol/L (101-111); EGFR African American 127.9 (>60); EGFR Non-African American 105.7 (>60); Globulin 2.9 g/dL (2-4); Glucose 137 mg/dL (70-100); Potassium 3.1 mmol/L (3.5-5.0); Sodium 141 mmol/L (135-145); Total Protein 7.4 g/dL (6.4-8.9)
[2019-09-30 16:34] LABS: ABS Basophils 0.1 10^3/ul (0-0.2); ABS Monocytes 0.3 10^3/ul (0-0.8); ABS Neutrophils 8.5 10^3/ul (1.5-7.7); Eosinophil % 0.2 %; Lymphocyte % 10.3 %
[2019-09-30 19:14] LABS: Urine Appearance Cloudy; Urine Bilirubin Negative (Negative); Urine Blood Negative (Negative); Urine Color Yellow; Urine Glucose Negative (Negative); Urine Ketones 2+ (Negative); Urine Nitrite Negative (Negative); Urine Protein 1+(30 mg/dL) (Negative); Urine Specific Gravity 1.027 (1.010-1.030); Urine Urobilinogen Negative (Negative)
[2019-09-30 19:19] LABS: Urine Bacteria Absent (Absent); Urine Red Blood Cell 2+(6-10/hpf) (Absent); Urine Squamous Epithelial Cell Present (Absent); Urine White Blood Cell Trace(0-5/hpf) (Absent)
[2019-09-30 21:49] VITALS: BP 127/78
== END 2019-09-30 21:46 | disposition home or self-care (01) ==
LOC: ED 14:12
DX: R10.9 Unspecified abdominal pain (principal); E78.5 Hyperlipidemia, unspecified; Z90.710 Acquired absence of both cervix and uterus; F17.200 Nicotine dependence, unspecified, uncomplicated; Z79.899 Other long term (current) drug therapy
CPT/HCPCS: 36415; 80053; 81003; 81015; 83605; 83690; 85025; 86140; 87086; 96361; 96374; 96375; 99284; J1170; J2405

== ENCOUNTER 2019-10-03 11:59 | Inpatient (IN) | payer OTHER ==
[2019-10-03] MEDS ORDERED: NS 0.9% 1000 ML** 1,000 ML IV ONE (12:09)
[2019-10-03] MEDS ORDERED: Ondansetron INJ* 2 MG/ML VIAL IV ONE (12:09)
[2019-10-03] MEDS ORDERED: Morphine 4 MG/ML VIAL (1 ml) 4 MG/ML VIAL IV ONE ×2 (12:09→12:33)
[2019-10-03 12:28] LABS: Hematocrit 39 % (35-47); Hemoglobin 12.9 g/dL (12.0-16.0); Mean Corpuscular HGB Conc 34 g/dL (31-36); Mean Corpuscular Hemoglobin 30 pg (27-31); Mean Corpuscular Volume 89 fL (80-97); Mean Platelet Volume 10.4 fL (7.4-10.4); Platelet Count 262 10^3/uL (150-450); Red Blood Count 4.35 10^6 /uL (3.70-4.87); Red Cell Distribution Width 14 % (10-15); White Blood Count 14.1 10^3/uL (3.5-10.8)
--- NOTE | 2019-10-03 12:36 | ED ---
Abdominal Pain/Female - HPI Summary HPI Summary: Pt is a 59 y/o F presenting to the ED with a chief complaint of abd pain in the left lower abd initially onset this morning. Pt was seen in the ER in [place] on 09/22/[address] did a CT scan and she was found to have diverticulitis. She finished her abx today (augmentin), yesterday was her last bowel movement, she notes soft black stool. She states this abd pain is similar to the pain when she had diverticulitis, and notes n/v. She has colonoscopy scheduled for of this month. She denies fever. No hx ovarian or uterine issues. Hx SVT w pacemaker placement. - History of Current Complaint Chief Complaint: EDAbdPain Stated Complaint: ABD PAIN PER PT Time Seen by Provider: 10/03/19 12:09 Hx Obtained From: Patient Hx Last Menstrual Period: NA Onset/Duration: Sudden Onset, Lasting Hours, Still Present Timing: Hours Severity Initially: Moderate Severity Currently: Severe Pain Intensity: 10 Pain Scale Used: 0-10 Numeric Location: Discrete At: LLQ Radiates: No Aggravating Factor(s): Nothing Alleviating Factor(s): Nothing Associated Signs and Symptoms: Positive: Blood in Stool - black stool, Nausea, Vomiting. Negative: Fever Allergies/Adverse Reactions: Allergies Allergy/AdvReac Type Severity Reaction Status Date / Time No Known Allergies Allergy Verified 10/03/19 12:04 PMH/Surg Hx/FS Hx/Imm Hx Previously Healthy: Yes Endocrine/Hematology History: Denies: Hx Anticoagulant Therapy, Hx Diabetes, Hx Thyroid Disease Cardiovascular History: Reports: Hx Angina, Hx Pacemaker/ICD - Pacemaker: She had a "fast rhythm" "heartbeat of a marathon runner.", Other Cardiovascular Problems/Disorders - hyprlipidemia Denies: Hx Congestive Heart Failure, Hx Coronary Artery Disease, Hx Deep Vein Thrombosis, Hx Hypercholesterolemia, Hx Hypertension, Hx Myocardial Infarction, Hx Valvular Heart Disease Respiratory History: Denies: Hx Asthma, Hx Chronic Obstructive Pulmonary Disease (COPD), Hx Lung Cancer, Hx Pneumonia, Hx Pulmonary Embolism GI History: Reports: Other GI Disorders - hemorrhoids Denies: Hx Gall Bladder Disease, Hx Gastrointestinal Bleed, Hx Ulcer, Hx Urosepsis History: Denies: Hx Kidney Stones, Hx Renal Disease Musculoskeletal History: Reports: Hx Tendonitis - hands, Other Musculoskeletal History - lumbago Sensory History: Reports: Hx Contacts or Glasses - wears glasses Denies: Hx Hearing Aid Opthamlomology History: Reports: Hx Contacts or Glasses - wears glasses Neurological History: Denies: Hx Dementia, Hx Migraine, Hx Seizures, Hx Transient Ischemic Attacks (TIA) Psychiatric History: Denies: Hx Anxiety, Hx Depression, Hx Schizophrenia, Hx Bipolar Disorder, Hx Substance Abuse - Cancer History Hx Chemotherapy: No Hx Radiation Therapy: No - Surgical History Surgery Procedure, Year, and Place: HYSTERECTOMY over 30 yrs ago. C SECTION X2 1972, Hx Anesthesia Reactions: No Infectious Disease History: No Infectious Disease History: Denies: Hx Clostridium Difficile, Hx Hepatitis, Hx Human Immunodeficiency Virus (HIV), Traveled Outside the US in Last 30 Days - Family History Known Family History: Negative: Cardiac Disease, Hypertension, Diabetes - Social History Alcohol Use: Weekly Alcohol Amount: on weekends 2-3 drinks Hx Substance Use: Yes Substance Use Type: Reports: Cocaine, Marijuana Substance Use Comment - Amount & Last Used: smokes marijuana every day, 2 joints a day Hx Tobacco Use: Yes Smoking Status (MU): Current Some Day Smoker Amount Used/How Often: "I smoke when I drink" Review of Systems Negative: Fever Positive: Abdominal Pain, Vomiting, Nausea, Other - black soft stool All Other Systems Reviewed And Are Negative: Yes Physical Exam - Summary Physical Exam Summary: Constitutional: Uncomfortable, in mild distress Skin: Warm, Dry HENT: Normocephalic; Atraumatic Eyes: Conjunctiva normal Neck: Musculoskeletal ROM normal neck. (-) JVD, (-) Stridor, (-) Nuchal rigidity Cardio: Rhythm regular, rate normal, Heart sounds normal; Intact distal pulses; Radial pulses are 2+ and symmetric. (-) Murmur Pulmonary/Chest wall: Effort normal. (-) Respiratory distress, (-) Wheezes, (-) Rales Abd: Soft, LLQ tenderness with voluntary guarding, (-) Distension, (-) Rebound Musculoskeletal: (-) Edema Lymph: (-) Cervical adenopathy Neuro: Alert, Oriented x3 Psych: Mood and affect Normal Triage Information Reviewed: Yes Vital Signs On Initial Exam: Initial Vitals Temp Pulse Resp BP Pulse Ox 99.3 F 62 16 146/89 100 10/03/19 12:01 10/03/19 12:10/03/19 12:01 10/03/19 12:01 10/03/19 12:01 Vital Signs Reviewed: Yes Procedures - Sedation Patient Received Moderate/Deep Sedation with Procedure: No Diagnostics - Vital Signs Vital Signs Temp Pulse Resp BP Pulse Ox 10/03/19 12:24 22 10/03/19 12:01 99.3 F 62 16 146/89 100 - Laboratory Lab Results: Lab Results 10/03/19 Range/Units 12:20 WBC 14.1 H (3.5-10.8) 10^3/uL RBC 4.35 (3.70-4.87) 10^6 /uL Hgb 12.9 (12.0-16.0) g/dL Hct 39 (35-47) % MCV 89 (80-97) fL MCH 30 (27-31) pg MCHC 34 (31-36) g/dL RDW 14 (10-15) % Plt Count 262 (150-450) 10^3/uL MPV 10.4 (7.4-10.4) fL Neut % (Auto) Pending Lymph % (Auto) Pending [place] % (Auto) Pending Eos % (Auto) Pending Baso % (Auto) Pending Absolute Neuts (auto) Pending Absolute Lymphs (auto) Pending Absolute Monos (auto) Pending Absolute Eos (auto) Pending Absolute Basos (auto) Pending Absolute Nucleated RBC Pending Nucleated RBC % Pending Result Diagrams: 10/03/19 12:20 10/03/19 12:20 Lab Statement: Any lab studies that have been ordered have been reviewed, and results considered in the medical decision making process. - CT CT a/p CT Interpretation Completed By: Radiologist Summary of CT Findings: Diverticulosis of the colon with suggestion of wall thickening and pericolonic infiltration of fat in the left lower quadrant is suspicious for diverticulitis. No definite abscess is noted although there is scant amount of fluid noted in the paracolic gutter. The remainder of the abdomen and pelvis are unremarkable. ED physician has reviewed this report. Abdominal Pain Fem Course/Dx - Course Course Of Treatment: 59-year-old female with a history of substance use, recent diverticulitis who presents with left lower quadrant pain. On arrival to ED, patient is in significant pain, voluntary guarding of the left lower quadrant. Rectal exam with brown stool no blood. Labs notable for elevated white count of 14. CT scan shows recurrent diverticulitis, no obvious abscess. Given the patient was just on antibiotics, and is in significant pain, GI consult is recommends admission to the hospital. Patient started on IV flagyl/ceftriaxone - Diagnoses Provider Diagnoses: Diverticulitis - Provider Notifications Discussed Care Of Patient With: Aura Olmstead Time Discussed With Above Provider: 15:35 Instructed by Provider To: Admit As Inpatient Discharge ED - Sign-Out/Discharge Documenting (check all that apply): Patient Departure - Discharge Plan Condition: Stable Disposition: ADMITTED TO [facility] - Billing Disposition and Condition Condition: STABLE Disposition: Admitted to [facility] - Attestation Statements Document Initiated by Scribe: Yes Documenting Scribe: Rylie Lujan Provider For Whom Scribe is Documenting (Include Credential): Devang Siegel MD. Scribe Attestation: IRylie, scribed for Devang Siegel MD. on 10/03/19 at 1926. Scribe Documentation Reviewed: Yes Provider Attestation: The documentation as recorded by the scribe, Rylie Lujan accurately reflects the service I personally performed and the decisions made by me, Devang Siegel MD. Status of Scribe Document: Viewed Consult Consult: 1530 - I spoke with Dr. Marvin of GI who recommended [place] the [place] [facility] I'll be giving the pt Flagyl and Ceftriaxone. 1535 - Dr. Olmstead requested a medical record prior to admission, but will come to evaluate [place] [facility]
[2019-10-03 12:43] LABS: ABS Basophils 0.1 10^3/ul (0-0.2); ABS Eosinophils 0.3 10^3/ul (0-0.6); ABS Lymphocytes 2.3 10^3/ul (1.0-4.8); ABS Monocytes 1.1 10^3/ul (0-0.8); ABS Neutrophils 10.3 10^3/ul (1.5-7.7); Eosinophil % 1.8 %; Lymphocyte % 16.4 %
[2019-10-03 12:45] LABS: Albumin 4.3 g/dL (3.2-5.2); Albumin/Globulin Ratio 1.4 (1-3); BUN/Creatinine Ratio 19.5 (8-20); Calcium 10.4 mg/dL (8.6-10.3); EGFR African American 85.8 (>60); EGFR Non-African American 70.9 (>60); Globulin 3.1 g/dL (2-4); Potassium 3.2 mmol/L (3.5-5.0); Total Bilirubin 0.4 mg/dL (0.2-1.0); Total Protein 7.4 g/dL (6.4-8.9)
[2019-10-03] MEDS ORDERED: Iohexol 300* (CONTRAST) 10 ML SDV IV ONE (13:10)
[2019-10-03] MEDS ORDERED: metroNIDAZOLE IV 500 MG/100ML* 500 MG/100 ML BAG IVPB ONE (15:31)
[2019-10-03] MEDS ORDERED: cefTRIAXone(*) 1 GM in NS 0.9% 50 ML* 50 ML IVPB ONE (15:31)
[2019-10-03] MEDS ORDERED: NS 0.9% 50 ML* 0 ML ONE (15:43)
[2019-10-03] MEDS ORDERED: Acetaminophen TAB* 325 MG PO PRN (15:54)
[2019-10-03] MEDS ORDERED: Morphine INJ* 2 MG/ML 1 ML SYRINGE (TWO MG - NEW SYRINGE VERSION) IV PRN (15:54)
[2019-10-03] MEDS ORDERED: NS 0.9% 1000 ML** 1,000 ML IV SCH (16:00)
[2019-10-03 16:19] LABS: C Reactive Protein 22.4 mg/L (<8.01)
--- NOTE | 2019-10-03 17:35 | CONS ---
GASTROENTEROLOGY CONSULT: DATE: CONSULTING PHYSICIANS: Dr. Richard Begum, Dr. Devang Siegel. REASON FOR CONSULTATION: Abdominal pain with white count elevated newly to [address] showing diverticulitis at the descending sigmoid junction. HISTORY: This 59-year-old woman said she has been having abdominal complaints for 2 or 3 months. She motions broadly over the lower abdomen, stating there have been sharp pains there periodically. She was quite frustrated and excitable during the history settling down a little bit, but it was difficult to get her to focus on a linear history given her frustration and exuberance. She states that generally her appetite is okay. With this abdominal pain, she has not had vomiting or overt fever. Dr. Begum, her primary, a few months ago referred her to the [place] [facility] office (? June) and she says Paula Cherry thought that aspirin and other pain medicines were bothering her stomach and asked her to stop those. She said that was done and that did not work. She says that rather suddenly while visiting relatives for [place] in [place], [place], pain became much worse. She went to the emergency room there and was placed on Augmentin. She came to the emergency room here 3 days ago stating pain was continuing to fluctuate, being much worse about every other day. This time, she was having some vomiting and says the stools were loose. In the ER 3 days ago here, her antibiotics were continued and Vicodin prescribed. Her white count was normal at 9.8. She since describes that pain was better for a day and then came back. She was extremely frustrated. Somewhere earlier this month, she had been seen at another gastroenterology office and is listed to have a colonoscopy with Dr. Rice on 10/28/19 though all she can recall is working with a staff member there. PAST MEDICAL HISTORY: 1. Sick sinus syndrome with pacemaker implanted in 2011. 2. Smoking. 3. Status post . 4. Status post hemorrhoidectomy, Dr. Shwetha Lorenzo, 2009. 5. Femoral hernia repair in 2016, Dr. Naveed Mae. 6. Hysterectomy - 1989, with the patient unsure of her ovarian status. 7. Diverticulosis - seen at her screening colonoscopies in February 2011 and January 2016. The first colonoscopy encountered small hepatic flexure and rectal tubular adenomas. SOCIAL HISTORY: She is single, having been born and raised in [facility]. She came here 11 years ago. She recently changed her primary physician to Dr. Begum. 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 She drinks wine or beer about once a week. REVIEW OF SYSTEMS: There is no history of seizure, CVA, TIA, hepatitis, jaundice, hemoptysis, TB, [place], rectal bleeding. LABS: White count elevated at 14. LFTs normal. Hemoglobin 12. CT SCAN: Extensive diverticulosis noted along with infiltration of the fat in the descending sigmoid junction area. Report of pelvic organs is inconsistent with the surgical history. Exam - she is a middle aged black female in no overt distress. VSS - no fever. She makes very little eye contact and turns away frequently in giving answers. HEENT exam negative. No icterus. No adenopathy. Chest clear and she had no difficulty sitting up for the exam. Heart sounds normal. Abdomen flat and generally soft with an infraumbilical midline scar. Bowel sounds are normal and there is mild tenderness without guarding in the LLQ. Legs without edema. IMPRESSION: This 59-year-old woman known to have diffuse diverticulosis from prior colonoscopies, over the last several weeks, for the first time has had overt diverticulitis. There were some gastrointestinal symptoms apparently preceding that and the records from the initial GI consult visit will be of interest to compare to see if there have been potentially several different types of symptoms. At this moment, she is too distraught and frustrated to really give a nuanced history. Clearly, problem #1, however, is the pericolonic infiltration in the proximal sigmoid colon. This is most likely diverticulitis that has been slow to respond. She will be placed on clear liquids, intravenous antibiotics, and her clinical course followed. She asked about possible outcomes and these were discussed including possible surgery. [id number]/[facility] #: [id number] KEVIN
--- NOTE | 2019-10-03 17:35 | HP ---
CC: Dr. Begum; Dr. Marvin, Gastroenterology; Dr. Grover, Cardiology * HISTORY AND PHYSICAL: DATE OF ADMISSION: 10/03/19 PRIMARY CARE PROVIDER: Dr. Begum. CHIEF COMPLAINT: Abdominal pain. HISTORY OF PRESENT ILLNESS: Aide Elkins is a 59-year-old female who was in [place] in an emergency department on 09/23/19 and was diagnosed with acute diverticulitis, prescribed Augmentin. She was prescribed it for 10 days. She stated that she had been taking it for 10 days, but despite that she continued to have semi-formed bowel movements up to 3 times a day that she described as "tarry." She also stated that she had been having nausea, but that much of vomiting since she has not eaten anything for the past 10 days. Today, she came in screaming when she was being brought to the emergency department due to pain. The patient's pain was localized in the left lower quadrant, and right now after her initial treatment in the ED, she is more comfortable and the pain is minimal. She was just seen by Dr. Marvin from Gastroenterology, who recommended for the patient to be placed on overnight observation on clear liquid diet, ceftriaxone, and Flagyl. PAST MEDICAL HISTORY: 1. Hypertension. 2. Dyslipidemia. 3. History of paroxysmal SVT. PAST SURGICAL HISTORY: 1. Status post pacemaker placement in 2011, under the care of Dr. Grover. 2. History of left femoral hernia repair. 3. Hysterectomy. 4. . 5. Hemorrhoidectomy. MEDICATIONS: Include: 1. Aspirin 81 mg daily. 2. Dicl[address] 75 mg b.i.d. p.r.n. 3. Toprol-XL 12.5 mg daily. 4. Augmentin at 875 mg b.i.d., which she just completed a 10-day course. ALLERGIES: No known drug allergies. FAMILY HISTORY: Father due to liver disease, mother secondary to uterine cancer. SOCIAL HISTORY: The patient smokes marijuana multiple times a day. She stated that she smokes tobacco when she drinks and the last she drank was 2 days ago and she drank 3 beers. Please be aware that the patient is not a forth-coming historian and gives very vague answers to questioning. The patient stated that she lives by herself and her surrogate is her male significant other, Magdy Clifford. REVIEW OF SYSTEMS: Please see history of present illness. All the remaining 12 systems were reviewed with the patient and were otherwise negative. PHYSICAL EXAMINATION GENERAL: The patient is a very pleasant 59-year-old female who is in no acute distress. The patient is alert and oriented x3. VITAL SIGNS: Blood pressure of 127/76, heart rate of 68 and regular, respiratory rate 15, oxygen saturation 96% on room air, temperature of 99.3. HEENT: Head: Atraumatic, normocephalic. Eyes: Pupils are equal, reactive to light and accommodation. Oropharynx is clear. Mucosa moist. NECK: Supple. No JVD. No bruits bilaterally. RESPIRATORY: Clear to auscultation bilaterally. CARDIOVASCULAR: Regular rate and rhythm. No murmur. ABDOMEN: Soft, minimally tender in the left lower quadrant with no rebound, no guarding. Bowel sounds are present in all 4 quadrants. EXTREMITIES: There is no edema. Pulses are +2 bilaterally. No clubbing or cyanosis. NEURO EVALUATION: Speech clear. Cranial nerves II through XII grossly intact. Motor strength is 5/5 bilaterally. DIAGNOSTIC STUDIES/LAB DATA: White blood cell count 14.1, hemoglobin 12.9, hematocrit 39, and platelets 262. Sodium 142, potassium 3.2, chloride 102, carbon dioxide 28, anion gap of 12, BUN 16, creatinine 0.82. Liver function tests unremarkable. C-reactive protein of 22.4. Calcium of 10.4. CT of the abdomen and pelvis, impression: "Diverticulosis of the colon with suggestion of wall thickening and pericolonic infiltration of the fat in the left lower quadrant suspicious for diverticulitis. No definite abscess is noted , although there is scant amount of fluid noted in the paracolic gutter. The remainder of the abdomen and pelvis is unremarkable." ASSESSMENT AND PLAN: 1. The patient has acute diverticulitis for which she is going to be placed on overnight observation. She was already started on ceftriaxone and Flagyl in the emergency department, which are going to be continued. She is going to be continued on clear liquid diet and a cumulative effects analyst is going to follow. 2. In regards to the patient's history of paroxysmal supraventricular tachycardia and pacemaker placement, the patient is on chronic Toprol-XL which is going to be continued. 3. For DVT prophylaxis, the patient is going to be placed on heparin subcutaneously. 4. The patient's code status is full. Her surrogate is her boyfriend as mentioned above. TIME SPENT: Approximately 55 minutes was spent on admission of this patient, more than half that time was spent [id number] with the patient during the interview and physical exam. [id number]/[facility] #: [id number] KEVIN
[2019-10-03] MEDS: NS 0.45% KCl 20 Meq 1000 ML* 1,000 ML IV SCH (17:56)
[2019-10-03] MEDS: Heparin VIAL(*) 5000 UNITS/ML VIAL (FIVE THOUSAND) SUBCUT SCH (21:54)
[2019-10-03] MEDS: metroNIDAZOLE IV 500 MG/100ML* 500 MG/100 ML BAG IVPB SCH (21:54)
[2019-10-03] MEDS: oxyCODONE/Acetamin 5/325 MG* TAB PO PRN (22:45)
[2019-10-04] MEDS: Heparin VIAL(*) 5000 UNITS/ML VIAL (FIVE THOUSAND) SUBCUT SCH ×3 (05:05→21:53)
[2019-10-04 05:52] LABS: ABS Basophils 0.1 10^3/ul (0-0.2); ABS Eosinophils 0.3 10^3/ul (0-0.6); ABS Lymphocytes 1.8 10^3/ul (1.0-4.8); ABS Monocytes 0.8 10^3/ul (0-0.8); ABS Neutrophils 6.8 10^3/ul (1.5-7.7); Eosinophil % 3.6 %; Hematocrit 32 % (35-47); Hemoglobin 10.8 g/dL (12.0-16.0); Lymphocyte % 18.1 %; Mean Corpuscular HGB Conc 34 g/dL (31-36); Mean Corpuscular Hemoglobin 30 pg (27-31); Mean Corpuscular Volume 89 fL (80-97); Mean Platelet Volume 10.2 fL (7.4-10.4); Platelet Count 217 10^3/uL (150-450); Red Blood Count 3.59 10^6 /uL (3.70-4.87); Red Cell Distribution Width 13 % (10-15); White Blood Count 9.8 10^3/uL (3.5-10.8)
[2019-10-04] MEDS: metroNIDAZOLE IV 500 MG/100ML* 500 MG/100 ML BAG IVPB SCH ×3 (05:59→21:53)
[2019-10-04] MEDS: oxyCODONE/Acetamin 5/325 MG* TAB PO PRN ×3 (06:00→21:50)
[2019-10-04 06:11] LABS: EGFR African American 125.4 (>60); EGFR Non-African American 103.6 (>60); Potassium 3.5 mmol/L (3.5-5.0)
[2019-10-04] MEDS: NS 0.45% KCl 20 Meq 1000 ML* 1,000 ML IV SCH (08:52)
--- NOTE | 2019-10-04 10:35 | PN ---
Subjective Date of Service: 10/04/19 Interval History: Patient continues to report left lower abd pain. Denies n/v/d. Denies black or tarry stools. Denies chest pain or shortness of breath. Denies fever or chills over night. Reports that she is able to tolerate clear liquid diet without increase in abd pain. Family History: Unchanged from Admission Social History: Unchanged from Admission Past Medical History: Unchanged from Admission Objective Active Medications: Acetaminophen (Tylenol Tab*) 650 mg PO Q4H PRN PRN Reason: PAIN-MILD/TEMP >/= 100.4 Heparin Sodium (Porcine) (Heparin Vial(*)) 5,000 units SUBCUT Q8HR [facility] Last Admin: 10/04/19 05:05 Dose: 5,000 units Metronidazole/Sodium Chloride (Flagyl 500 Mg Ivpb*) 500 mg in 100 mls @ 100 mls /hr IVPB Q8H [facility] Last Admin: 10/04/19 05:59 Dose: 100 mls/hr Ceftriaxone Sodium 1 gm/ (Sodium Chloride) 50 mls @ 100 mls/hr IVPB Q24H [facility] Potassium Chloride/Sodium Chloride (Ns 0.45% Kcl 20 Meq 1000 Ml*) 1,000 mls @ 75 mls/hr IV PER RATE [facility] Stop: 10/05/19 05:19 Last Admin: 10/04/19 08:52 Dose: 75 mls/hr Morphine Sulfate (Morphine Inj (Syringe))*) 1 mg IV Q4H PRN PRN Reason: PAIN - SEVERE Last Admin: 10/04/19 05:02 Dose: 1 mg Oxycodone/Acetaminophen (Percocet 5/325 Tab*) 1 tab PO Q4H PRN PRN Reason: pain moderate Last Admin: 10/04/19 06:00 Dose: 1 tab Vital Signs - 8 hr 10/04/19 10/04/19 10/04/19 02:53 05:02 06:00 Temperature 98.4 F Pulse Rate 65 Respiratory 18 17 17 Rate Blood Pressure 131/79 (mmHg) O2 Sat by Pulse 100 Oximetry 10/04/19 10/04/19 07:49 08:59 Temperature 98.0 F Pulse Rate 60 Respiratory 16 16 Rate Blood Pressure 116/66 (mmHg) O2 Sat by Pulse 100 Oximetry Oxygen Devices in Use Now: None Appearance: appears mildly uncomfortable resting in bed , no acute distress Eyes: No Scleral Icterus Ears/Nose/Mouth/Throat: Clear Oropharnyx, Mucous Membranes Moist Neck: NL Appearance and Movements; NL JVP, Trachea Midline Respiratory: Symmetrical Chest Expansion and Respiratory Effort, Clear to Auscultation Cardiovascular: NL Sounds; No Murmurs; No JVD, No Edema Abdominal: - - flat, soft, tenderness with palpation to left lower quadrant. BS active x 4 Extremities: No Edema Skin: No Rash or Ulcers Neurological: Alert and Oriented x 3 Result Diagrams: 10/04/19 05:45 10/04/19 05:45 Additional Lab and Data: Lab Results 10/03/19 Range/Units 12:20 WBC 14.1 H (3.5-10.8) 10^3/uL RBC 4.35 (3.70-4.87) 10^6 /uL Hgb 12.9 (12.0-16.0) g/dL Hct 39 (35-47) % MCV 89 (80-97) fL MCH 30 (27-31) pg MCHC 34 (31-36) g/dL RDW 14 (10-15) % Plt Count 262 (150-450) 10^3/uL MPV 10.4 (7.4-10.4) fL Neut % (Auto) Pending Lymph % (Auto) Pending [place] % (Auto) Pending Eos % (Auto) Pending Baso % (Auto) Pending Absolute Neuts (auto) Pending Absolute Lymphs (auto) Pending Absolute Monos (auto) Pending Absolute Eos (auto) Pending Absolute Basos (auto) Pending Absolute Nucleated RBC Pending Nucleated RBC % Pending Assess/Plan/Problems-Billing Assessment: Ms. Elkins a 59 y.o female admitted with diverticulitis after failing out patient antibiotic therapy - Patient Problems (1) Diverticulitis Current Visit: Yes Status: Acute Code(s): K57.92 - DVTRCLI OF INTEST, PART UNSP, W/O PERF OR ABSCESS W/O BLEED SNOMED Code(s): 772003874 Comment: -GI recommendations appriecated - Continue clear liquid diet - continue Ceftriaxone and flagyl IV (2) H/O paroxysmal supraventricular tachycardia Current Visit: Yes Status: Acute Code(s): Z86.79 - PERSONAL HISTORY OF OTHER DISEASES OF THE CIRCULATORY SYSTEM SNOMED Code(s): 653663571635238 Comment: - will continue metoprolol (3) DVT prophylaxis Current Visit: Yes Status: Acute Code(s): Z29.9 - ENCOUNTER FOR PROPHYLACTIC MEASURES, UNSPECIFIED SNOMED Code(s): 198682125 Comment: Heparin SQ (4) Full code status Current Visit: Yes Status: Acute Code(s): Z78.9 - OTHER SPECIFIED HEALTH STATUS SNOMED Code(s): 959758005 Status and Disposition: OBV- discharge when medical stable
[2019-10-04] MEDS: Metoprolol Succinate XL TAB* 25 MG PO SCH (11:40)
[2019-10-04] MEDS ORDERED: cefTRIAXone(*) 1 GM in NS 0.9% 50 ML* 50 ML IVPB SCH (14:00)
--- NOTE | 2019-10-04 16:08 | PN ---
Progress Note - Progress Note Date of Service: 10/04/19 Note: still with pain, but better than yesterday VS; 98.6, 113/61, 60, 14, 98% nad,alert +bs, soft, mildly tender wbc 9.8<-----14.1, CT noted diverticulitis, day #2 IV abx will follow Mesfin Sharma MD
[2019-10-05] MEDS: metroNIDAZOLE IV 500 MG/100ML* 500 MG/100 ML BAG IVPB SCH (05:47)
[2019-10-05] MEDS: Heparin VIAL(*) 5000 UNITS/ML VIAL (FIVE THOUSAND) SUBCUT SCH (06:19)
[2019-10-05] MEDS: Metoprolol Succinate XL TAB* 25 MG PO SCH (08:05)
[2019-10-05 08:10] VITALS: BP 117/68
[2019-10-05 08:31] LABS: Hematocrit 33 % (35-47); Hemoglobin 11.3 g/dL (12.0-16.0); Mean Corpuscular HGB Conc 34 g/dL (31-36); Mean Corpuscular Hemoglobin 30 pg (27-31); Mean Corpuscular Volume 89 fL (80-97); Mean Platelet Volume 10.2 fL (7.4-10.4); Platelet Count 233 10^3/uL (150-450); Red Blood Count 3.76 10^6 /uL (3.70-4.87); Red Cell Distribution Width 13 % (10-15); White Blood Count 8.3 10^3/uL (3.5-10.8)
[2019-10-05 08:54] LABS: BUN/Creatinine Ratio 9.4 (8-20); Calcium 9.3 mg/dL (8.6-10.3); EGFR African American 114.1 (>60); EGFR Non-African American 94.3 (>60); Potassium 3.6 mmol/L (3.5-5.0)
--- NOTE | 2019-10-05 12:31 | DS ---
DISCHARGE SUMMARY: DATE OF ADMISSION: 10/03/19 DATE OF DISCHARGE: 10/05/19 PROVIDER: Ilda Mccracken NP PRIMARY CARE PROVIDER: Richard Begum MD LEAD WAREHOUSE ASSOCIATE: Paula Cherry NP, from [place]. ATTENDING PHYSICIAN WHILE IN THE HOSPITAL: Aura Olmstead MD * dictated by Ilda Mccracken NP) PRIMARY DIAGNOSIS: Diverticulitis. SECONDARY DIAGNOSES: 1. Hypertension. 2. Dyslipidemia. 3. History of paroxysmal supraventricular tachycardia. STUDIES COMPLETED WHILE IN THE HOSPITAL: She had a CT of the abdomen and pelvis , radiologist's impression: Diverticulosis of the colon with suggestion of wall thickening and pericolonic infiltration of fat in the left lower quadrant suspicious for diverticulitis, no definite abscess is noted, although there is a scant amount of fluid noted in the pericolonic gutter, the remainder of the abdomen and pelvis is unremarkable. CONSULTATIONS: She had a consultation from Gastroenterology who initially recommended clear liquids and intravenous antibiotics. DISCHARGE MEDICATIONS: New home medications: 1. Cefdinir 300 mg p.o. b.i.d. x8 days. 2. Flagyl 500 mg p.o. every 8 hours x8 days. Continued home medications: 1. Simethicone 80 mg a.c. as needed. 2. Voltaren tablet 75 mg b.i.d. as needed. 3. Aspirin 81 mg p.o. daily. 4. Metoprolol 12.5 mg p.o. daily. 5. Ensure. 6. Tylenol 650 mg every 4 hours as needed for pain. The patient does have a prescription for hydrocodone 5/325 that was dispensed on 10/01/[address] Mora for 20 tablets. She can resume this medication as needed for severe pain. I-STOP number was [id number]. HISTORY OF PRESENT ILLNESS AND HOSPITAL COURSE: Ms. Elkins is a 59-year-old female who was in the emergency room on 09/23/19 diagnosed with acute diverticulitis and prescribed Augmentin. She was prescribed that for 10 days. The patient reports that she took a 10-day course, but despite the antibiotics she continued to have semiformed bowel movements up to 3 times a day, described as tarry and decreased appetite x10 days. The patient presented to the emergency room due to left lower quadrant pain. She did have a CT of the abdomen and pelvis that was suspicious for diverticulitis. She was seen by Gastroenterology who recommended clear liquid diet with ceftriaxone and Flagyl. Throughout her hospitalization, the patient did receive IV fluids and was placed on a clear liquid diet. She tolerated clear liquid diet. Her left lower quadrant abdominal pain improved during this hospitalization. She currently has mild tenderness noted to the left lower quadrant, otherwise abdomen is benign for tenderness. She does report a significant improvement since admission. At this time, the patient is stable for discharge home. REVIEW OF SYSTEMS: The patient denies any fever, chills overnight. Denies any nausea, vomiting. She does complain of mild tenderness to the left lower quadrant, otherwise other abdominal pain has resolved. She denies any diarrhea or tarry stools. She denies any chest pain or shortness of breath, cough, congestion. She denies any urinary frequency, urgency, or pain with urination. PHYSICAL EXAMINATION: General: At this time, Ms. Elkins is alert and oriented, resting in her hospital bed. She reports "I feel much better today." Vital Signs: Blood pressure 117/68, heart rate 72, respirations 17, O2 saturation 99% on room air, temperature was 97.8. HEENT: Head is atraumatic, normocephalic. Eyes: EOMs are intact. Sclerae anicteric and not pale. Oral mucosa is moist. Neck is supple. Lungs are clear to auscultation bilaterally. No wheezes, rales, or rhonchi. Cardiac: S1, S2. Regular rate and rhythm. No rubs or gallops. Abdomen is soft with mild tenderness in the left lower quadrant. Bowel sounds are active x4. Extremities: She is able to move all 4 extremities. No clubbing or cyanosis. Neurologic: She is awake, alert, oriented x3. Speech is clear. Thought process is intact. There are no gross focal deficits. Skin is intact. At this time, Ms. Elkins is stable for discharge home. DISCHARGE PLAN: Ms. Elkins will be discharged home. Activity as tolerated. 1. Diverticulitis. The patient will be placed on cefdinir 300 mg b.i.d. for 8 more days. She will continue Flagyl 500 mg t.i.d. for 8 more days to complete a 10- day course of antibiotics. She has been prescribed hydrocodone recently. She can continue hydrocodone 5/325 one tablet every 8 hours as needed for severe pain. She should follow up with her commercial drone software developer, Paula Cherry, from [place]; she should call for an appointment and further directions on her upcoming colonoscopy or she can follow up with Dr. Marvin as needed. She should follow up with her primary care provider, Dr. Richard Begum, in 4 to 7 days. 2. Hypertension. She should resume her medications as previously prescribed. The patient should return to the emergency room for any fever, severe lower abdominal pain, black or tarry stools, bright red blood from the rectum, or any other concerns. I have discussed this with my attending, Dr. Aura Olmstead; she is in agreement with my plan. CONDITION ON DISCHARGE: Stable. DISPOSITION ON DISCHARGE: Home. TIME SPENT: Forty five minutes was spent on this discharge reviewing discharge instructions and plan. ILDA MCCRACKEN NP [id number]/[facility] #: [id number] KEVIN
== END 2019-10-05 11:15 | disposition home or self-care (01) | DRG 244 ==
LOC: ED 11:59 → MED 17:15 → OBSVTOIN 10-04 11:00
PROVIDERS: ADMIT Internal Medicine; ATTEND Internal Medicine
DX: K57.32 Diverticulitis of large intestine without perforation or abscess without bleeding (principal); I47.1 Supraventricular tachycardia; E78.5 Hyperlipidemia, unspecified; F17.200 Nicotine dependence, unspecified, uncomplicated; I49.5 Sick sinus syndrome; Z95.0 Presence of cardiac pacemaker; Z79.82 Long term (current) use of aspirin; Z79.899 Other long term (current) drug therapy
CPT/HCPCS: 36415; 74177; 80048; 80053; 83605; 85025; 85027; 86140; 96374; 96375; 96376; 99284; A9270-GY; G0378; J0696; J1644; J2270; J2405; Q9967

== ENCOUNTER 2019-10-19 07:08 | Emergency (ER) | payer OTHER ==
--- OUTSIDE RECORDS SUMMARY | 2019-10-19 07:46 | XMS REPORT | Summary of Care ---
:1960 Author Organization [facility] Address [address] [facility] [place] [address] Care Team Providers Name Role Phone Richard Begum Primary Care Provider Reason for Visit Reason Comments Transitional Care Management pt presents for TCM from [place] [facility] [place] 10/03/19-10/05/19 Encounter Details Date Type Department Care Team Description 10/11/2019 Office Visit [facility] Richard Begum MD Diverticulitis (Primary Dx); Practice [address] [place] [address] RD Sciatica, right side [address] [place] [address] [place] [address] [phone] Allergies No Known Allergiesdocumented as of this encounter (statuses as of 10/11/2019) Medications Medication Sig Dispensed Refills Start Date End Date Status metoprolol Take 12.5 mg 0 Active (LOPRESSOR) 25 MG by mouth Oral Tab DAILY. Aspirin 81 MG Oral Take 81 mg by 0 Active Tab mouth DAILY. diclofenac Take 1 Tab by 60 Tab 2 05/25/2019 Active (VOLTAREN) 75 MG mouth TWO Oral Tab TIMES DAILY ECIndications: NEEDED Neck pain, Right (muscle and arm pain, Right joint pain). hand pain fluocinonide Apply a thin 1 Tube 0 07/02/2019 Active (LIDEX) 0.05 % layer to Apply externally affected area CreamIndications: on buttocks Rectal itching twice daily as needed Cefdinir (OMNICEF) TWICE DAILY 0 10/05/2019 Active 300 MG Oral Cap metroNIDAZOLE THREE TIMES 0 10/05/2019 Active (FLAGYL) 500 MG DAILY Oral Tab tizanidine Take 1 Tab by 60 Tab 1 10/11/2019 Active (ZANAFLEX) 4 MG mouth TWICE Oral Tab DAILY. Polyethylene Take by 0 Discontinued Glycol 3350 mouth 0 (MIRALAX PO) NEEDED. tizanidine Take 1 Tab by 60 Tab 1 05/25/2019 Discontinued (ZANAFLEX) 4 MG mouth TWICE 0 (Reorder) Oral Tab DAILY. simethicone Take 1 Tab by 2 Tab 0 08/16/2019 Discontinued (GENASYME, mouth 0 MYLICON) 80 MG DIRECTED. Oral Chew Tab Nutritional Take 1 bottle 0 Discontinued Supplements by oral route 0 (ENSURE ORIGINAL daily. PO) documented as of this encounter (statuses as of 10/11/2019) Active Problems No known active problemsdocumented as of this encounter (statuses as of 2019) Immunizations Name Administration Dates Next Due PNEUMOCOCCAL [...] Sign Reading Time Taken Comments Blood Pressure 110/64 10/11/2019 2:53 PM EST Pulse 65 10/11/2019 2:53 PM EST Temperature 37.1 10/11/2019 2:53 PM C (98.7 EST F) Respiratory Rate - - Oxygen Saturation 99% 10/11/2019 2:53 PM EST Inhaled Oxygen Concentration - - Weight 60.7 kg (133 lb 14.4 oz) 10/11/2019 2:53 PM EST Height 175.3 cm (5' 9") 10/11/2019 2:53 PM EST Body Mass Index 19.77 10/11/2019 2:53 PM EST documented in this encounter Progress Notes Richard Begum MD - 10/11/2019 3:00 PM EST PATIENT: Aide Elkins : 1960 DATE OF SERVICE: 10/11/2019 CHIEF COMPLAINT: Chief Complaint Patient presents with Transitional Care Management pt presents for TCM from admission to [facility] [place] 10/03/19-10/05/19 Subjective HISTORY OF PRESENT ILLNESS: 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 In for hospital follow up. TCM call was not made. Admitted 10/03 and discharged 10/05. Diagnosis wasdiverticulitis. She had been complaining of vomiting and diarrhea for at least 2 months. Sent to GI and they were going to send for endoscopies but could not be done here due to her pacer so sent to Dr Marvin. She went to [place] for [place] and spent the day in the ER for abd pain vomit diarrhea , fever and abdpain. Had a CT scan showing diverticulitis. Sent home on augmentin and pain meds. . BM still 3 x a day , tarry , decreased appetite and LLQ pain so went back to ER and admitted this time with rocephin andflagyl She improved and sent home on omnicef and flagyl . She has continued to recover no pain and no diarrhea or vomiting and eating a low residue diet. She went back to work today . She was to follow up with GI. She was to have her endoscopies on the . New complaint of 2- 3 weeks of pain both buttocks one side then the other . So bad had to use a cane. Right side to the knee and left side stay just the buttocks. Right side weak and numb. No urine symptoms . No buttock pain before . No leg swelling. She had stopped her NSAID and asa thinking they caused the GI symptoms Hct did drop to 33 . Wbc got to 14 but back down K was low Past Medical History: Diagnosis Date Cocaine use Pacemaker 2011 [facility] Postmenopausal SSS (sick sinus syndrome) (HCC) SVT (supraventricular tachycardia) (HCC) Tobacco user Family History Problem Relation Age of Onset Cancer Mother 60 uterine cancer Alcohol/Drug Father Respiratory Father Current Outpatient Medications Medication Sig Aspirin 81 MG Oral Tab Take 81 mg by mouth DAILY. Cefdinir (OMNICEF) 300 MG Oral Cap TWICE DAILY diclofenac (VOLTAREN) 75 MG Oral Tab EC Take 1 Tab by mouth TWO TIMES DAILY NEEDED (muscleand joint pain). fluocinonide (LIDEX) 0.05 % Apply externally Cream Apply a thin layer to affected area on buttocks twice daily as needed metoprolol (LOPRESSOR) 25 MG Oral Tab Take 12.5 mg by mouth DAILY. metroNIDAZOLE (FLAGYL) 500 MG Oral Tab THREE TIMES DAILY tizanidine (ZANAFLEX) 4 MG Oral Tab Take [...] Financial resource strain: Not on file Food insecurity Worry: Not on file Inability: Not on file Transportation needs Medical: Not on file Non-medical: Not on [...] Sexual activity: Yes Partners: Male Lifestyle Physical activity Days per week: Not on file Minutes per session: Not on file Stress: Not on file Relationships Social connections Talks on phone: Not on file Gets together: Not on file Attends pentecostal service: Not on file Active member of club or organization: Not on file Attends meetings of clubs or organizations: Not on file Relationship status: Not on file Intimate partner violence Fear of current or ex partner: Not [...] Asked Social History Narrative 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 Physical Exam Vitals signs reviewed. Constitutional: Appearance: She is not ill-appearing. HENT: Mouth/Throat: Pharynx: Oropharynx is clear. Eyes: General: No scleral icterus. Cardiovascular: Rate and Rhythm: Normal rate and regular rhythm. Pulmonary: Effort: Pulmonary effort is normal. Breath sounds: Normal breath sounds. Abdominal: General: Abdomen is flat. There is no distension. Palpations: Abdomen is soft. There is no mass. Tenderness: There is abdominal tenderness (LLQ ). There is no guarding. Musculoskeletal: Right lower leg: No edema. Left lower leg: No edema. Neurological: Comments: DTR equal, negative SLR rom of the hips no pain strength %/5 Tender to palpate buttocks ASSESSMENT / IMPRESSION: ICD-9-CM ICD-10-CM 1. Diverticulitis via CT scan but vomit and diarrhea are usually not the main symptoms without pain and fever which came later . She feels better now, back to work, transition to high fiber diet and keep the appointment with GI as cant do colonoscopy here due to pace maker 562.11 K57.92 2. Sciatica, right side Based on hx but exam benin. Cant have MRI due to pacer. Gave zanaflex andcall if not getting better and will have to try PT 724.3 M54.31 Plan Author: Richard Begum MD 10/11/2019 15:13 documented in this encounter Plan of Treatment Health Maintenance Due Date Last Done Comments DTaP/Tdap/Td Vaccines (1 - 1969 Tdap) HIV SCREENING 1973 ZOSTER IMMUNIZATION SERIES 2008 (1 of 2) INFLUENZA VACCINE (#1) 2019 PAP SMEAR 10/23/2019 10/23/2016 DEPRESSION SCREENING 05/25/2020 05/25/2019 MAMMOGRAM (SCREENING) 07/07/2020 07/07/2019, 06/25/2018, 03/10/2017, Additional history exists LIPID DISORDER SCREENING 12/18/2023 12/17/2018, 07/13/2015 Colonoscopy 02/20/2026 02/21/2016 HEPATITIS C SCREENING Completed 10/06/2017 PNEUMOCOCCAL 0-64 YRS Completed 10/31/2017 HEPATITIS A IMMUNIZATION Aged Out No longer eligible SERIES based on patient's age to complete this topic HPV IMMUNIZATION SERIES Aged Out No longer eligible based on patient's age to complete this topic MENINGOCOCCAL VACCINE IMM Aged Out No longer eligible based on patient's age to complete this topic documented as of this encounter Results Not on filedocumented in this encounter Visit Diagnoses Diagnosis Diverticulitis Diverticulitis of colon (without mention of hemorrhage) Sciatica, right side documented in this encounter documented as of this encounter
--- NOTE | 2019-10-19 08:20 | ED ---
GI/ HPI - HPI Summary HPI Summary: Patient is a 59 y/o F presenting to the ED for a chief complaint of constipation. Patient notes her constipation began on 10/16/19 and she last had a bowel movement on 10/19/19. She reports pain with bowel movements that she attributes to having hemorrhoids. Denies rectal bleeding. Patient denies fever, nausea, or vomiting. She took Miralax on 10/16/19 without relief. Last week, patient was [place] [facility] [place] and has since been discharged and prescribed antibiotics. PMHx is significant for diverticulitis. Any significant PSHx or FMHx is denied. - History of Current Complaint Chief Complaint: EDConstipation Time Seen by Provider: 10/19/19 07:48 Stated Complaint: HEMORROIDS PER PT Hx Obtained From: Patient Hx Last Menstrual Period: NA Onset/Duration: Atraumatic, Still Present Timing: Constant Severity: Moderate Current Severity: Moderate Pain Intensity: 10 Associated Signs and Symptoms: Positive: Constipation. Negative: Nausea, Vomiting, Fever Aggravating Factor(s): Nothing Alleviating Factor(s): Nothing - Additional Pertinent History Primary Care Physician: FERCHO - Allergy/Home Medications Allergies/Adverse Reactions: Allergies Allergy/AdvReac Type Severity Reaction Status Date / Time No Known Allergies Allergy Verified 10/19/19 07:21 Home Medications: Home Medications Metoprolol Succinate XL TAB* [Toprol XL TAB*] 12.5 mg PO DAILY 10/19/19 [ History Confirmed 10/19/19] Polyethylene Glycol 3350* [Miralax*] 17 gm PO DAILY PRN 10/19/19 [History Confirmed 10/19/19] PMH/Surg Hx/FS Hx/Imm Hx Previously Healthy: Yes Endocrine/Hematology History: Denies: Hx Anticoagulant Therapy, Hx Diabetes, Hx Thyroid Disease Cardiovascular History: Reports: Hx Angina, Hx Pacemaker/ICD - Pacemaker: She had a "fast rhythm" "heartbeat of a marathon runner.", Other Cardiovascular Problems/Disorders - hyprlipidemia Denies: Hx Congestive Heart Failure, Hx Coronary Artery Disease, Hx Deep Vein Thrombosis, Hx Hypercholesterolemia, Hx Hypertension, Hx Myocardial Infarction, Hx Valvular Heart Disease Respiratory History: Denies: Hx Asthma, Hx Chronic Obstructive Pulmonary Disease (COPD), Hx Lung Cancer, Hx Pneumonia, Hx Pulmonary Embolism GI History: Reports: Hx Diverticulosis - Diverticulitis, Other GI Disorders - hemorrhoids Denies: Hx Gall Bladder Disease, Hx Gastrointestinal Bleed, Hx Ulcer, Hx Urosepsis History: Denies: Hx Kidney Stones, Hx Renal Disease Musculoskeletal History: Reports: Hx Tendonitis - hands, Other Musculoskeletal History - lumbago Sensory History: Reports: Hx Contacts or Glasses - wears glasses Denies: Hx Legally Blind, Hx Deafness, Hx Hearing Aid Opthamlomology History: Reports: Hx Contacts or Glasses - wears glasses Denies: Hx Legally Blind EENT History: Denies: Hx Deafness Neurological History: Denies: Hx Dementia, Hx Migraine, Hx Seizures, Hx Transient Ischemic Attacks (TIA) Psychiatric History: Denies: Hx Anxiety, Hx Depression, Hx Schizophrenia, Hx Bipolar Disorder, Hx Substance Abuse - Cancer History Hx Chemotherapy: No Hx Radiation Therapy: No - Surgical History Surgical History: Yes Surgery Procedure, Year, and Place: HYSTERECTOMY over 30 yrs ago. C SECTION X2 1972, 72 Hx Anesthesia Reactions: No Infectious Disease History: No Infectious Disease History: Denies: Hx Clostridium Difficile, Hx Hepatitis, Hx Human Immunodeficiency Virus (HIV), Traveled Outside the [place] in Last 30 Days - Family History Known Family History: Negative: Cardiac Disease, Hypertension, Diabetes - Social History Occupation: Employed Full-time Alcohol Use: Weekly Alcohol Amount: on weekends 2-3 drinks Hx Substance Use: Yes Substance Use Type: Reports: Cocaine, Marijuana Substance Use Comment - Amount & Last Used: smokes marijuana every day, 2 joints a day Hx Tobacco Use: Yes Smoking Status (MU): Current Some Day Smoker Amount Used/How Often: "I smoke when I drink" Review of Systems Negative: Fever Positive: Other - Positive constipation. Negative: Vomiting, Nausea All Other Systems Reviewed And Are Negative: Yes Physical Exam - Summary Physical Exam Summary: Constitutional: Well-developed, Well-nourished, Alert. (-) Distressed Skin: Warm, Dry HENT: Normocephalic; Atraumatic Eyes: Conjunctiva normal Neck: Musculoskeletal ROM normal neck. (-) JVD, (-) Stridor, (-) Nuchal rigidity Cardio: Rhythm regular, rate normal, Heart sounds normal; Intact distal pulses; Radial pulses are 2+ and symmetric. (-) Murmur Pulmonary/Chest wall: Effort normal. (-) Respiratory distress, (-) Wheezes, (-) Rales Abd: Soft, (-) tenderness, (-) Distension, (-) Guarding, (-) Rebound Musculoskeletal: (-) Edema Neuro: Alert, Oriented x3 Psych: Mood and affect Normal Rectal: 2 external hemorrhoids. Caro, patient's nurse, is in the room. Triage Information Reviewed: Yes Vital Signs On Initial Exam: Initial Vitals Temp Pulse Resp BP Pulse Ox 98.9 F 70 16 129/87 98 10/19/19 07:18 10/19/19 07:18 10/19/19 07:18 10/19/19 07:18 10/19/19 07:18 Vital Signs Reviewed: Yes Procedures - Sedation Patient Received Moderate/Deep Sedation with Procedure: No Diagnostics - Vital Signs Vital Signs Temp Pulse Resp BP Pulse Ox 10/19/19 07:18 98.9 F 70 16 129/87 98 - Laboratory Lab Statement: Any lab studies that have been ordered have been reviewed, and results considered in the medical decision making process. GIGU Course/Dx - Course Course Of Treatment: 59 y/o F w recent diverticulitis presenting with constipation and hemorrhoids. - VSS, afebrile. Exam with external hemorrhoids. Patient making small amount of stool, suspect hemorrhoids secondary to constipation. Given Anusol, milk of magnesia. Patient sent with a prescription for hemorrhoid cream as her insurance does not cover the suppositories. Patient will make an outpatient appointment with surgery for hemorrhoidectomy. - Diagnoses Provider Diagnoses: Hemorrhoids Discharge ED - Sign-Out/Discharge Documenting (check all that apply): Patient Departure - Discharge - Discharge Plan Condition: Stable Disposition: HOME Prescriptions: Hydrocortisone SUPP* [Anusol HC Supp*] 25 mg .SEE ORDER DAILY 14 Days #14 supp Patient Education Materials: Constipation (ED) Referrals: Richard Begum MD [Primary Care Provider] - Joel Justin MD [Medical Doctor] - Additional Instructions: You were seen in the emergency department for occupation hemorrhoid pain. Please take MiraLAX daily. You can take Anusol suppositories as needed for hemorrhoid pain. Please follow up with your primary care doctor in next 2-3 days and return to emergency department for worsening or concerning symptoms. It was a pleasure taking care of you today. - Billing Disposition and Condition Condition: STABLE Disposition: Home - Attestation Statements Document Initiated by Scribe: Yes Documenting Scribe: Evelin Ramos Provider For Whom Michelleibrosa m is Documenting (Include Credential): Devang Siegel MD Scribe Attestation: IEvelin, scribed for Devang Siegel MD on 10/19/19 at 1023. Scribe Documentation Reviewed: Yes Provider Attestation: The documentation as recorded by the Evelin snow accurately reflects the service I personally performed and the decisions made by , Devang Siegel MD Status of Scribe Document: Viewed
[2019-10-19] MEDS ORDERED: Hydrocortisone SUPP* 25 MG SUPP (2.5%) PR ONE (08:34)
[2019-10-19] MEDS ORDERED: Magnesium Hydroxide LIQ* 30 ML UDC PO ONE (08:34)
[2019-10-19 09:43] VITALS: BP 123/78
== END 2019-10-19 09:42 | disposition home or self-care (01) ==
LOC: ED 07:08
DX: K64.9 Unspecified hemorrhoids (principal); K59.00 Constipation, unspecified; Z72.0 Tobacco use; Z79.899 Other long term (current) drug therapy
CPT/HCPCS: 99282; A9270-GY

== ENCOUNTER 2019-11-28 18:01 | Emergency (ER) | payer OTHER ==
[2019-11-28] MEDS ORDERED: Morphine 4 MG/ML VIAL (1 ml) 4 MG/ML VIAL IV ONE (18:25)
[2019-11-28] MEDS ORDERED: Ondansetron INJ* 2 MG/ML VIAL IV ONE (18:25)
[2019-11-28] MEDS ORDERED: NS 0.9% 1000 ML** 1,000 ML IV ONE (18:25)
[2019-11-28 18:26] LABS: ABS Basophils 0.1 10^3/ul (0-0.2); ABS Lymphocytes 1.8 10^3/ul (1.0-4.8); ABS Monocytes 0.8 10^3/ul (0-0.8); ABS Neutrophils 8.5 10^3/ul (1.5-7.7); Eosinophil % 0.4 %; Hematocrit 42 % (35-47); Hemoglobin 14.2 g/dL (12.0-16.0); Lymphocyte % 15.6 %; Mean Corpuscular HGB Conc 34 g/dL (31-36); Mean Corpuscular Hemoglobin 30 pg (27-31); Mean Corpuscular Volume 88 fL (80-97); Mean Platelet Volume 9.7 fL (7.4-10.4); Platelet Count 233 10^3/uL (150-450); Red Blood Count 4.74 10^6 /uL (3.70-4.87); Red Cell Distribution Width 14 % (10-15); White Blood Count 11.2 10^3/uL (3.5-10.8)
--- NOTE | 2019-11-28 18:37 | ED ---
GI/ HPI - HPI Summary HPI Summary: 59 year old male presents with abd pain since friday. States pain started in lower abdomen and is moving to the quadrants. She says that feels like the diverticulitis she has had in the past. She admits to nausea vomiting and diarrhea. No urinary symptoms. States she developed chest pain yesterday. She states that is feels like acid reflux. She is a shortness of breath. No cough. Had her gallbladder and multiple C-sections. Has history of a pacemaker. has no history of htn or dm. not a smoker. no fam hx of cardiac disease. - History of Current Complaint Chief Complaint: EDAbdPain Time Seen by Provider: 11/28/19 18:05 Stated Complaint: ABD PAIN PER PT Hx Last Menstrual Period: NA Pain Intensity: 10 - Additional Pertinent History Primary Care Physician: FERCHO - Allergy/Home Medications Allergies/Adverse Reactions: Allergies Allergy/AdvReac Type Severity Reaction Status Date / Time No Known Allergies Allergy Verified 11/28/19 18:04 Home Medications: Home Medications Metoprolol Succinate XL TAB* [Toprol XL TAB*] 12.5 mg PO DAILY 10/19/19 [ History Confirmed 11/28/19] Ondansetron ODT TAB* [Zofran 4 MG Odt TAB*] 4 mg PO Q6H PRN #12 tab.odt [Rx] PMH/Surg Hx/FS Hx/Imm Hx Endocrine/Hematology History: Denies: Hx Anticoagulant Therapy, Hx Diabetes, Hx Thyroid Disease Cardiovascular History: Reports: Hx Angina, Hx Pacemaker/ICD - Pacemaker: She had a "fast rhythm" "heartbeat of a marathon runner.", Other Cardiovascular Problems/Disorders - hyprlipidemia Denies: Hx Congestive Heart Failure, Hx Coronary Artery Disease, Hx Deep Vein Thrombosis, Hx Hypercholesterolemia, Hx Hypertension, Hx Myocardial Infarction, Hx Valvular Heart Disease Respiratory History: Denies: Hx Asthma, Hx Chronic Obstructive Pulmonary Disease (COPD), Hx Lung Cancer, Hx Pneumonia, Hx Pulmonary Embolism GI History: Reports: Hx Diverticulosis - Diverticulitis, Other GI Disorders - hemorrhoids Denies: Hx Gall Bladder Disease, Hx Gastrointestinal Bleed, Hx Ulcer, Hx Urosepsis History: Denies: Hx Kidney Stones, Hx Renal Disease Musculoskeletal History: Reports: Hx Tendonitis - hands, Other Musculoskeletal History - lumbago Sensory History: Reports: Hx Contacts or Glasses - wears glasses Denies: Hx Legally Blind, Hx Deafness, Hx Hearing Aid Opthamlomology History: Reports: Hx Contacts or Glasses - wears glasses Denies: Hx Legally Blind Neurological History: Denies: Hx Dementia, Hx Migraine, Hx Seizures, Hx Transient Ischemic Attacks (TIA) Psychiatric History: Denies: Hx Anxiety, Hx Depression, Hx Schizophrenia, Hx Bipolar Disorder, Hx Substance Abuse - Cancer History Hx Chemotherapy: No Hx Radiation Therapy: No - Surgical History Surgery Procedure, Year, and Place: HYSTERECTOMY over 30 yrs ago. C SECTION X2 1972, Hx Anesthesia Reactions: No Infectious Disease History: No Infectious Disease History: Denies: Hx Clostridium Difficile, Hx Hepatitis, Hx Human Immunodeficiency Virus (HIV), Traveled Outside the [place] in Last 30 Days - Family History Known Family History: Negative: Cardiac Disease, Hypertension, Diabetes - Social History Alcohol Use: Weekly Alcohol Amount: on weekends 2-3 drinks Hx Substance Use: Yes Substance Use Type: Reports: Cocaine, Marijuana Substance Use Comment - Amount & Last Used: smokes marijuana every day, 2 joints a day Hx Tobacco Use: Yes Smoking Status (MU): Current Some Day Smoker Amount Used/How Often: "I smoke when I drink" Review of Systems Positive: Fever Negative: Chest Pain Negative: Shortness Of Breath Positive: Abdominal Pain, Vomiting, Diarrhea, Nausea All Other Systems Reviewed And Are Negative: Yes Physical Exam Triage Information Reviewed: Yes Vital Signs On Initial Exam: Initial Vitals Temp Pulse Resp BP Pulse Ox 98.3 F 65 20 133/92 100 11/28/19 18:02 11/28/19 18:02 11/28/19 18:02 11/28/19 18:02 11/28/19 18:02 Vital Signs Reviewed: Yes Appearance: Positive: Well-Appearing Skin: Positive: Warm, Dry Head/Face: Positive: Normal Head/Face Inspection Eyes: Positive: Normal, Conjunctiva Clear ENT: Positive: Pharynx normal Respiratory/Lung Sounds: Positive: Clear to Auscultation, Breath Sounds Present Cardiovascular: Positive: Normal, RRR Abdomen Description: Positive: Soft, Other: - tenderness diffuse greatest in lower abd Bowel Sounds: Positive: Present Musculoskeletal: Positive: Normal Neurological: Positive: Normal Psychiatric: Positive: Normal Procedures - Sedation Patient Received Moderate/Deep Sedation with Procedure: No Diagnostics - Vital Signs Vital Signs Temp Pulse Resp BP Pulse Ox 11/28/19 18:31 18 11/28/19 18:02 98.3 F 65 20 133/92 100 - Laboratory Lab Results: Lab Results 11/28/19 Range/Units 18:18 WBC 11.2 H (3.5-10.8) 10^3/uL RBC 4.74 (3.70-4.87) 10^6 /uL Hgb 14.2 (12.0-16.0) g/dL Hct 42 (35-47) % MCV 88 (80-97) fL MCH 30 (27-31) pg MCHC 34 (31-36) g/dL RDW 14 (10-15) % Plt Count 233 (150-450) 10^3/uL MPV 9.7 (7.4-10.4) fL Neut % (Auto) 75.9 % Lymph % (Auto) 15.6 % Waller % (Auto) 7.1 % Eos % (Auto) 0.4 % Baso % (Auto) 1.0 % Absolute Neuts (auto) 8.5 H (1.5-7.7) 10^3/ul Absolute Lymphs (auto) 1.8 (1.0-4.8) 10^3/ul Absolute Monos (auto) 0.8 (0-0.8) 10^3/ul Absolute Eos (auto) 0.0 (0-0.6) 10^3/ul Absolute Basos (auto) 0.1 (0-0.2) 10^3/ul Absolute Nucleated RBC 0.0 10^3/ul Nucleated RBC % 0.0 Result Diagrams: 11/28/19 18:18 11/28/19 18:18 Lab Statement: Any lab studies that have been ordered have been reviewed, and results considered in the medical decision making process. - CT abd CT Interpretation Completed By: Radiologist Summary of CT Findings: IMPRESSION: There is colonic diverticulosis without evidence for acute diverticulitis. - EKG No standard instances Cardiac Rate: NL EKG Rhythm: Sinus Rhythm Summary of EKG Findings: sinus rhythm, prolonged QT interval Re-Evaluation - Re-Evaluation First Eval Re-Evaluation Time: 21:30 Comment: states having acid reflux type pain Second Eval Re-Evaluation Time: 22:31 Change: Improved Comment: symptoms improved with GI cocktail, no chest pain GIGU Course/Dx - Course Course Of Treatment: 59 year old male presents with abd pain since anu. States pain started in lower abdomen and is moving to the quadrants. She says that feels like the diverticulitis she has had in the past. She admits to nausea vomiting and diarrhea. No urinary symptoms. States she developed chest pain yesterday. She states that is feels like acid reflux. She is a shortness of breath. No cough. Had her gallbladder and multiple C-sections. Has history of a pacemaker. On exam has diffuse abd pain that is greatest in lower abdomen. wbc 11. crp elevated. potassium [address] shows no acute findings. troponin first was .03 and second was .02. ekg sinus rhythm, chest pain resolved with GI cocktail. will discharge with nausea meds. Told to follow up primary. Patient understands and agrees the plan. - Diagnoses Differential Diagnoses - Female: Diverticulitis, Gastritis, Gastroenteritis ( Viral) Provider Diagnoses: Abdominal pain, Nausea vomiting and diarrhea Discharge ED - Sign-Out/Discharge Documenting (check all that apply): Patient Departure - Discharge Plan Condition: Good Disposition: HOME Prescriptions: Ondansetron ODT TAB* [Zofran 4 MG Odt TAB*] 4 mg PO Q6H PRN #12 tab.odt PRN Reason: Nausea Patient Education Materials: Acute Abdominal Pain (ED) Referrals: Richard Begum MD [Primary Care Provider] - Additional Instructions: Can take Zofran every 6 hours as needed for nausea Drink small amounts of fluid as tolerated When able to eat follow BRAT diet: Bananas, rice, applesauce, toast Take ibuprofen or Tylenol for pain as needed every 6 hours Follow up with primary within 5 days Return to ED if develop any new or worsening symptoms - Billing Disposition and Condition Condition: GOOD Disposition: Home
[2019-11-28 18:46] LABS: ALT 10 U/L (7-52); AST 13 U/L (13-39); Albumin 5.1 g/dL (3.2-5.2); Albumin/Globulin Ratio 1.7 (1-3); Alkaline Phosphatase 73 U/L (34-104); Anion Gap 12 mmol/L (2-11); BUN/Creatinine Ratio 21.4 (8-20); Blood Urea Nitrogen 18 mg/dL (6-24); C Reactive Protein 25.82 mg/L (<8.01); CO2 Carbon Dioxide 28 mmol/L (22-32); Calcium 11.4 mg/dL (8.6-10.3); Chloride 100 mmol/L (101-111); EGFR African American 83.4 (>60); EGFR Non-African American 68.9 (>60); Glucose 155 mg/dL (70-100); Sodium 140 mmol/L (135-145); Total Protein 8.1 g/dL (6.4-8.9)
[2019-11-28 18:59] LABS: Troponin I 0.03 ng/mL (<0.03)
--- OUTSIDE RECORDS SUMMARY | 2019-11-28 19:19 | XMS REPORT | Continuity of Care Document ---
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 Onset: 10/25/2011 Sinus node dysfunction Bianca Grover M.D. Onset: 10/25/2011 Electrocardiogram abnormal Bianca Grover M.D. Onset: 10/25/2011 Tachycardia Bianca Grover M.D. Onset: 10/25/2011 Paroxysmal supraventricular tachycardia Raina Bird.Lux Onset: 2011 Cardiac pacemaker in situ Bianca Grover M.D. Onset: 06/12/2012 Hyperlipidemia Bianca Grover M.D. Onset: 06/12/2012 Dyspnea Bianca Grover M.D. Onset: 06/23/2014 Dizziness and giddiness Bianca Grover M.D. Onset: 06/23/2014 Social History Type Date Description Comments Sex Unknown ETOH Use Occasionally consumes less than one a day beer Recreational Drug Use Regularly uses Marijuana Tobacco Use Start: Unknown End: Patient is a former socially smokes Unknown smoker when drinks Smoking Status Reviewed: 11/03/19 Patient is a former socially smokes smoker when drinks Enjoy Exercising Enjoys exercising walking Exercise Type/Frequency Exercises rarely Allergies, Adverse Reactions, Alerts Description No Known Drug Allergies Medications Active Medications SIG Qnty Indications Ordering Date Provider Nitroglycerine 0.2% Apply to affected 30gm Joel Justin, 10/21/2019 With Lidogel 2% area sparingly MD, FACS bid Metoprolol Succinate Take 1/2 15tabs Jenae OmeroWanda Lorenzo, ER (One-Half) Tablet N.P. 25mg Tablets ER 24HR By Mouth Once Daily Tizanidine HCL one by mouth Unknown 4mg every 8 hours as Capsules needed muscle spasms History Medications Rectiv apply to affected 30gm K60.0 Joel Justin MD, 10/21/2019 - 0.4% area twice daily FACS 11/02/2019 Ointment Lidocaine apply to affected 30gm K60.0 Joel Justin MD, 10/21/2019 - (Anorectal) area ever 4-6 FACS 11/02/2019 5% hours as needed Cream for pain Immunizations Description No Information Available Vital Signs Date Vital Result Comment 11/03/2019 3:39pm Height 69 inches 5'9" Weight 132.38 lb Heart Rate 61 /min BP Systolic 95 mmHg BP Diastolic 63 mmHg Respiratory Rate 16 /min O2 % BldC Oximetry 98 % BMI (Body Mass Index) 19.5 kg/m2 10/21/2019 2:56pm Height 69 inches 5'9" Weight 125.00 lb Heart Rate 72 /min BP Systolic 122 mmHg BP Diastolic 80 mmHg Respiratory Rate 16 /min Body Temperature 98.4 F BMI (Body Mass Index) 18.5 kg/m2 Results Description No Information Available Procedures Date Code Description Status 10/21/2019 35394 Anoscopy Completed 06/16/2019 64268 Pace Maker Eval W/Iterative Adjment Dual Lead Completed 06/16/2019 96974 Pace Maker Eval W/Iterative Adjment Dual Lead Completed 02/21/2016 88336923 Colonoscopy Completed 03/08/2011 25566966 Colonoscopy Completed Medical Devices Description No Information Available Encounters Type Date Location Provider Dx Diagnosis Office Visit 11/03/2019 [facility] Baron Marvin, K63.5 Polyp of colon 3:00p K57.30 Dvrtclos of lg int w/o perforation or abscess w/o bleeding K60.0 Acute anal fissure Office Visit 10/21/2019 3:15p Surgical Joel Justin, K62.89 Other specified [facility] , FACS diseases of anus and rectum K60.0 Acute anal fissure Office Visit 10/05/2019 [facility] Ilda K57.92 Dvtrcli of 10:34a Assoc,pc Hospitalists [place], 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 ELECTRICAL 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 intest, part unsp, w/o perf or abscess w/o bleed Office Visit 10/04/2019 [facility] Ilda K57.92 Dvtrcli of 10:34a Assoc,pc Hospitalists [place], SHIP YARD ELECTRICAL PERSON intest, part unsp, w/o perf or abscess w/o bleed Office Visit 10/03/2019 [facility] Baron Renee K57.20 Dvtrcli of lg 7:00a MD Yon int w perforation and abscess w/o bleeding Office Visit 10/03/2019 [facility] Aura R10.32 Left lower 10:33a Assoc,pc Hospitalists Jorden Olmstead quadrant pain Assessments Date Code Description Provider 11/03/2019 K63.5 Polyp of colon Baron Marvin MD 11/03/2019 K57.30 Diverticulosis of large intestine Baron Marvin MD without perforation or abscess without bleeding 11/03/2019 K60.0 Acute anal fissure Baron Marvin MD 10/21/2019 K62.89 Other specified diseases of anus and Joel Justin MD, FACS rectum 10/21/2019 K60.0 Acute anal fissure Joel Justin MD, FACS 10/05/2019 K57.92 Diverticulitis of intestine, part Ilda [place], SHIP YARD ELECTRICAL PERSON unspecified, without perforation or abscess without bleeding 10/04/2019 K57.92 Diverticulitis of intestine, part Ilda [place], SHIP YARD ELECTRICAL PERSON unspecified, without perforation or abscess without bleeding 10/03/2019 K57.20 Diverticulitis of large intestine with Baron Marvin MD perforation and abscess without bleeding 10/03/2019 R10.32 Left lower quadrant pain Aura Olmstead M.D. 06/16/2019 Z95.0 Presence of cardiac pacemaker Bianca Grover M.D. 06/16/2019 Z95.0 Presence of cardiac pacemaker Ica Pacer Schedule 06/16/2019 I49.5 Sick sinus syndrome Ica Pacer Schedule Plan of Treatment Future Appointment(s):11/18/2019 2:30 pm - Joel Justin MD, FACS at [facility]11/03/2019 - Baron Marvin MDK63.5 Polyp of colonNew Orders :Colonoscopy, Ordered: 11/03/19Comments:Risk and benefits of the procedure were discussed with patient.Follow up:after due to fissure currently vneufcaW52.30 Dvrtclos of lg int w/o perforation or abscess w/o bleedingComments :Risk and benefits of the procedure were discussed with patient.Follow up:after due to fissure currently matnzkdY19.0 Acute anal fissureComments:Risk and benefits of the procedure were discussed with patient.Follow up:after due to fissure currently present Functional Status Description No Information Available Mental Status Description No Information Available Referrals Description No Information Available
--- OUTSIDE RECORDS SUMMARY | 2019-11-28 19:19 | XMS REPORT | Continuity of Care Document ---
:1960 External Reference #:[id number] Author Name Joel Justin MD, FACS (transmitted by agent of provider Gabino Prather) Address 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 Problems Active Problems Provider Date Premature beats [...] Start: Unknown End: Patient is a former Unknown smoker Smoking Status Reviewed: 10/21/19 Patient is a former smoker Enjoy Exercising Enjoys exercising walking Exercise Type/Frequency Exercises rarely Allergies, Adverse Reactions, Alerts Description No Known Drug Allergies Medications Active Medications SIG Qnty Indications Ordering Provider Date Rectiv apply to affected 30gm K60.0 Joel Justin MD, 10/21/2019 0.4% Ointment area twice daily FACS Lidocaine (Anorectal) apply to affected 30gm K60.0 Joel Justin MD, 10/21 area ever 4-6 FACS 5% Cream hours as needed for pain Metoprolol Succinate Take 1/2 15tabs Jenae Lorenzo, ER (One-Half) Tablet N.P. 25mg Tablets ER 24HR By Mouth Once Daily Immunizations Description No Information Available Vital Signs Date Vital Result Comment 10/21/2019 2:56pm Height 69 inches 5'9" Weight 125.00 lb Heart Rate 72 /min BP Systolic 122 mmHg BP Diastolic 80 mmHg Respiratory Rate 16 /min Body Temperature 98.4 F BMI (Body Mass Index) 18.5 kg/m2 01/07/2019 3:38pm Height 69 inches 5'9" Weight 143.25 lb Heart Rate 72 /min BP Systolic Sitting 138 mmHg LA, BP Diastolic Sitting 82 mmHg LA, BMI (Body Mass Index) 21.2 kg/m2 Ejection Fraction 50%-55% c% 12/24/18 echo Results Description No Information Available Procedures Date Code Description Status 06/16/2019 42481 Pace Maker Eval W/Iterative Adjment Dual Lead Completed 06/16/2019 26839 Pace Maker Eval W/Iterative Adjment Dual Lead Completed Medical Devices Description No Information Available Encounters Type Date Location Provider Dx Diagnosis [facility] K[facility].92 Dvtrcli of 10:34a Assoc,pc TUG MASTER intest, part Hospitalists unsp, w/o perf or abscess w/o bleed [facility] K57.92 Dvtrcli of 10:34a Assoc,pc TUG MASTER intest, part Hospitalists unsp, w/o perf or abscess w/o bleed Office Visit 10/03/2019 [facility] Aura Olmstead, R10.32 Left lower 10:33a gregory Fu MWandaDWanda quadrant pain Hospitalists Assessments Date Code Description Provider 10/21/2019 K60.0 Acute anal fissure Joel Justin MD, FACS 10/05/2019 K57.92 Diverticulitis of intestine, part Ilda [place], TUG MASTER unspecified, without perforation or abscess without bleeding 10/04/2019 K57.92 Diverticulitis of intestine, part Ilda Hanna, TUG MASTER unspecified, without perforation or abscess without bleeding [...] Justin MD, FACS at [facility]11/04/2019 8:15 am - Baron Marvin MD at [facility] Lhssrnrfforfnkjv71/23/2020 - Joel Justin MD, FACSK60.0 Acute anal fissureNew Medication:Rectiv 0.4 % - apply to affected area twice dailyLidocaine (Anorectal ) 5 % - apply to affected area ever 4-6 hours as needed for painFollow up:4 weeks if not betterRecommendations:see handout Functional Status Description No Information Available Mental Status Description No Information Available Referrals Description No Information Available
--- OUTSIDE RECORDS SUMMARY | 2019-11-28 19:19 | XMS REPORT | Continuity of Care Document ---
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, K57.92 Dvtrcli of 10:34a Assoc,pc LIBRARY MEDIA ASSISTANT intest, part Hospitalists unsp, w/o perf or abscess w/o bleed Office Visit 10/03/2019 [facility] Aura Olmstead, R10.32 Left lower 10:33a gregory Fu MWandaDWanda quadrant pain Hospitalists Assessments Date Code Description Provider 10/21/2019 K60.0 Acute anal fissure Joel Justin MD, FACS 10/05/2019 K57.92 Diverticulitis of intestine, part Ilda [place], LIBRARY MEDIA ASSISTANT unspecified, without perforation or abscess without bleeding 10/04/2019 K57.92 Diverticulitis of intestine, part Ilda [place], LIBRARY MEDIA ASSISTANT unspecified, without perforation or abscess without bleeding [...] Justin MD, FACS at [facility]11/04/2019 8:15 am - Baron Marvin MD at [facility] Twhtparavlbgwoni80/23/2020 - Joel Justin MD, FACSK60.0 Acute anal [...]
[2019-11-28] MEDS ORDERED: Iohexol 300* (CONTRAST) 10 ML SDV IV ONE (19:42)
[2019-11-28] MEDS ORDERED: Pantoprazole IV* 40 MG IV ONE (21:31)
[2019-11-28] MEDS ORDERED: Al Hydrox/Mg Hydrox/Simet LIQ* 30 ML UDC PO ONE (21:31)
[2019-11-28] MEDS ORDERED: Lidocaine 2% VISCOUS* 15 ML UDC PO ONE (21:31)
[2019-11-28 21:33] LABS: Urine Appearance Cloudy; Urine Bilirubin Negative (Negative); Urine Blood Negative (Negative); Urine Color Yellow; Urine Glucose Negative (Negative); Urine Ketones Trace (Negative); Urine Nitrite Negative (Negative); Urine Protein 1+(30 mg/dL) (Negative); Urine Specific Gravity 1.021 (1.010-1.030); Urine Urobilinogen Negative (Negative)
[2019-11-28] MEDS ORDERED: Potassium Chloride* LIQUID 20 MEQ/15 ML UDC PO ONE (22:31)
[2019-11-28] MEDS ORDERED: O ndansetron ODT 4MG 5TAB PRPK 4 MG PAK PO ONE (22:32)
[2019-11-28 23:01] VITALS: BP 145/99
== END 2019-11-28 23:00 | disposition home or self-care (01) ==
LOC: ED 18:01
DX: R10.30 Lower abdominal pain, unspecified (principal); R11.2 Nausea with vomiting, unspecified; R19.7 Diarrhea, unspecified; K57.30 Diverticulosis of large intestine without perforation or abscess without bleeding; R06.02 Shortness of breath; Z95.810 Presence of automatic (implantable) cardiac defibrillator; Z72.0 Tobacco use
CPT/HCPCS: 36415; 74177; 80053; 81003; 81015; 83605; 83690; 84484; 85025; 86140; 93005; 96361; 96374; 96375; 99284; A9270-GY; J2270; J2405; Q9967